=== PATIENT | female | born 1960 | race Caucasian/White ===

== ENCOUNTER 2016-07-28 23:44 | Emergency (ER) | payer OTHER ==
[~2016-07-28] VITALS: Ht 170.2 cm; Wt 86.2 kg
[~2016-07-28 23:44] MED LIST: AMBIEN 5 MG TABL5 M1 PO; ATENOLOL 100MG100 MG PO; BACTRIM DS TAB1 EACH PO; BENADRYL25 MG PO; BUDEPRION SR150 MG PO; BUPROPION HCL150 M1 PO; BUSPAR15 MG PO; BUSPIRONE HCL10 MG PO; CELEXA10 MG PO; CIPROFLOXACIN500 M1 PO; DICLOFENAC SODI75 M1 PO; DIFLUCAN150 MG PO; FLEXERIL PO; GABAPENTIN 100100 MG; HYDROCHLOROTHIA50 MG PO; HYDROCODON-ACE1 EAC5 PO; HYDROCODON-ACE1 EAC7 PO; HYDROCODONE-AP1 EAC6 PO; LAMOTRIGINE100 MG PO; LANTUS SUBQ; LIPITOR; LIPITOR40 MG PO; LISINOPRIL40 MG PO; METHOCARBAMOL500 M2 PO; MORPHINE SULFA100 MG PO; NEURONTIN 300M300 M2 PO; NEURONTIN600 MG PO; NORCO 5-325 TA1 EACH PO; NORFLEX100 MG PO; NOVOLOG100 UNIT/1; PERCOCET 5-3251 EACH PO; PERCOCET 7.5-31 EACH PO; PHENERGAN 25 MG25 MG PO; PREDNISONE 20 M20 MG PO; PRILOSEC 20 MG20 MG PO; SEROQUEL 25 MG25 M1 PO; VITAMIN D-32000 UNIT PO; VITAMIN D1000 UNI1 PO; ZANAFLEX4 M1 PO
[2016-07-29] MEDS ORDERED: VALIUM2 MG PO (00:11)
[2016-07-29] MEDS ORDERED: NORCO 5-325 TA1 EACH PO (00:11)
[2016-07-29 01:12] VITALS: BP 102/61
[2016-08-29] MEDS ORDERED: HYDROCODONE-AP1 EAC6 PO ×2 (08:56)
[2016-08-30] MEDS ORDERED: HYDROCODONE-AP1 EAC6 PO (09:47)
[2016-09-21] MEDS ORDERED: FLEXERIL PO (23:13)
[2016-09-21] MEDS ORDERED: NORCO 5-325 TA1 EACH PO (23:21)
[2016-09-30] MEDS ORDERED: FLEXERIL PO (08:56)
[2016-09-30] MEDS ORDERED: HYDROCODONE-AP1 EAC6 PO ×2 (09:31)
== END 2016-07-29 01:13 | disposition home or self-care (01) ==
LOC: ER 23:44
DX: M54.12 Radiculopathy, cervical region (principal); F17.210 Nicotine dependence, cigarettes, uncomplicated; F15.10 Other stimulant abuse, uncomplicated; Z88.0 Allergy status to penicillin; Z88.1 Allergy status to other antibiotic agents

== ENCOUNTER → 2016-07-31 | Outpatient (CLI) | payer OTHER ==
[~2016-07-31] VITALS: Ht 170.2 cm; Wt 85.7 kg
[~2016-07-31] MED LIST changes: +VALIUM2 MG PO
--- NOTE | ~2016-07-31 | HPC ---
[facility] [address] [place] [address] PAIN MANAGEMENT CONSULTATION Name: TYRELL DEL VALLE Room #: REG SAMMY Stringer.#: [id number] Admission: 07/31/16 Attend Phys: Tim Marr MD Discharge: Date of : 60 Report #: [id number] THIS REPORT FOR: //name// CC: Deborah Marr DATE OF SERVICE: 07/31/2016 Followup visit for chronic low back pain, post-laminectomy syndrome with radiculopathy and now cervicalgia with radiculopathy following into the left arm. The patient presents to the pain clinic today complaining bitterly of pain into her left arm. Pain intensity is 8/10. She describes a constant, sharp, numbness. It is exacerbated by activity. The pain radiates from her left neck and shoulder down into her left arm. She complains of some mild numbness and weakness involving the fourth and fifth finger. MEDICATIONS: Hydrocodone 5/325, Bupropion 150 mg ER daily, Lantus insulin, gabapentin 600 mg t.i.d., diphenhydramine, Citalopram 10 mg daily, lisinopril 1 mg daily, atenolol 1 mg daily, ____ and hydrochlorothiazide. ALLERGIES: TETRACYCLINE, PENICILLIN AND ERYTHROMYCIN. PHYSICAL EXAMINATION: GENERAL: Pleasant, alert and oriented. VITAL SIGNS: Blood pressure 110/68, heart rate 74 and BMI is 29.6. EXTREMITIES: Cervical range of motion is limited in extension. Rotational uthy-my-enzz movements. She has some tension signs noted in the left arm. Strength is diminished with personnel monitor on the left in comparison to the right. Biceps and triceps strength is also diminished. IMPRESSION: Cervicalgia with radiculopathy into the left upper extremity. RECOMMENDATIONS: Cervical epidural injection under fluoroscopic guidance. PROCEDURE: She was taken to the fluoroscopic suite, placed prone, skin prepped with ChloraPrep. Skin was anesthetized over C67. A 20-gauge Tuohy epidural needle was advanced first attempt in the epidural space with loss of resistance. There was no blood or CSF aspirated. A 1 mL of Omnipaque was injected with excellent spread of dye observed in the epidural space was followed by 3 mL of 0.5% lidocaine mixed with 80 mg of triamcinolone. She tolerated the procedure well and was observed for 45 [place] [address] PAIN MANAGEMENT CONSULTATION Name: TYRELL DEL VALLE Room #: REG SAMMY Diaz#: [id number] Admission: 07/31/16 Attend Phys: Tim Marr MD Discharge: Date of : 60 Report #: [id number] Followup visit is planned as needed. <ELECTRONICALLY SIGNED> By: Tim Marr MD 08/02/16 1329 [id number] [id number] Tim Marr MD /nt
[2016-07-31 13:14] VITALS: BP 110/68
== END ==
LOC: PAIN 07:41
DX: M54.2 Cervicalgia (principal); M96.1 Postlaminectomy syndrome, not elsewhere classified; I10 Essential (primary) hypertension; Z79.4 Long term (current) use of insulin; F17.210 Nicotine dependence, cigarettes, uncomplicated

== ENCOUNTER 2016-08-11 10:37 | Emergency (ER) | payer OTHER ==
[~2016-08-11] VITALS: Ht 170.2 cm; Wt 86.2 kg
[2016-08-11] MEDS ORDERED: FLEXERIL PO (11:47)
[2016-08-11] MEDS ORDERED: PREDNISONE 20 M20 MG PO (11:47)
[2016-08-11] MEDS ORDERED: HYDROCODONE-AP1 EAC6 PO (11:52)
[2016-08-11 12:16] VITALS: BP 102/64
[2016-08-29] MEDS ORDERED: HYDROCODONE-AP1 EAC6 PO ×2 (08:56)
[2016-08-30] MEDS ORDERED: HYDROCODONE-AP1 EAC6 PO (09:47)
[2016-09-21] MEDS ORDERED: FLEXERIL PO (23:13)
[2016-09-21] MEDS ORDERED: NORCO 5-325 TA1 EACH PO (23:21)
[2016-09-30] MEDS ORDERED: FLEXERIL PO (08:56)
[2016-09-30] MEDS ORDERED: HYDROCODONE-AP1 EAC6 PO ×2 (09:31)
== END 2016-08-11 12:18 | disposition home or self-care (01) ==
LOC: ER 10:37
DX: M54.12 Radiculopathy, cervical region (principal); Z88.1 Allergy status to other antibiotic agents; Z88.0 Allergy status to penicillin; Z88.8 Allergy status to other drugs, medicaments and biological substances; F17.210 Nicotine dependence, cigarettes, uncomplicated; F10.99 Alcohol use, unspecified with unspecified alcohol-induced disorder

== ENCOUNTER → 2016-10-25 | Outpatient (CLI) | payer OTHER ==
[~2016-10-25] VITALS: Ht 170.2 cm; Wt 86.8 kg
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
[2016-10-25 09:38] VITALS: BP 137/97
== END ==
LOC: PAIN 09:22
DX: M54.12 Radiculopathy, cervical region (principal)

== ENCOUNTER → 2017-01-09 | Outpatient (CLI) | payer OTHER ==
[~2017-01-09] VITALS: Ht 170.2 cm; Wt 84.4 kg
[~2017-01-09] MED LIST changes: +DOXEPIN 50MG CA50 MG PO; +IBUPROFEN 400400 M1 PO; +LIPITOR 20 MG T20 M1 PO
--- NOTE | ~2017-01-09 | HPC ---
[facility] [place] [address] PAIN MANAGEMENT CONSULTATION Name: TYRELL DEL VALLE Room #: REG SAMMY Mckeon.#: [id number] Admission: 01/09/17 Attend Phys: Tim Marr MD Discharge: Date of : 60 Report #: [id number] THIS REPORT FOR: //name// CC: Deborah Gómez Marr DATE OF SERVICE: 01/09/2017 Followup visit for lumbar radiculopathy. The patient has cervical and lumbar radiculopathy. Today, she is here because the pain is severe and is radiating into her legs. She has responded nicely to epidural injections. We have been trying using sparingly. She is on pain medication. We are also trying to control those medications. She is on hydrocodone no more than 15 mg per day. She denies any significant side effects. Pain today is described as 8/10. It is in her low back, left leg and right leg today. It is sharp and burning and tingling. Pain in the neck is present with cervical rotation. She has some weakness in both arms, left worse than right. 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 MEDICATIONS: Ibuprofen, doxepin, atorvastatin, hydrocodone, bupropion, insulin, atenolol, omeprazole, hydrochlorothiazide. PHYSICAL EXAMINATION: She is a very pleasant, easygoing 56-year-old. She moves from sitting to standing position. Her gait is antalgic. Examination of the neck first demonstrates reduced range of motion. She has weakness in the left arm. She has increasing pain that radiates into the left arm with neck extension. Deep tendon reflexes are trace. Examination of the low back reveals tenderness across the low back, limited range of motion in both flexion and extension, which reproduced both pain into the back and into the buttocks. She has positive straight leg raising bilaterally, left worse than right. IMPRESSION: 1. Lumbar radiculopathy, post-laminectomy syndrome. 2. Cervical radiculopathy with mass effect on the left C7 nerve root. Surgery may be contemplated for the neck lesion. 3. Management of high risk medication, hydrocodone. She is on a very modest dose of 15 mg and understands the importance of safeguarding medication and using it under terms of our opioid agreement. I have agreed to renew the medication for her for 1 month being up to her surgery in January for her neck. We will see her back after that in February. I have also [place] [address] PAIN MANAGEMENT CONSULTATION Name: TYRELL DEL VALLE Room #: REG [facility].#: [id number] Admission: 01/09/17 Attend Phys: Tim Marr MD Discharge: Date of : 60 Report #: [id number] lumbar epidural injection under fluoroscopic guidance. Procedure explained the risks, benefits, and she was taken to the fluoroscopic suite for treatment. PROCEDURE: The patient was taken to fluoroscopic suite, placed prone, skin prepped with ChloraPrep. Skin anesthetized to the right of her scar at L4-L5. A 20-gauge Tuohy epidural needle advanced in the epidural space with loss of resistance. No blood or CSF aspirated. 1 mL of Omnipaque excellent posterior epidural spread. It was then followed by 3 mL of 0.5% lidocaine mixed with 80 mg triamcinolone. She tolerated the procedure well. Pain was reduced by about 25% and she was taken to recovery room for observation. We will see her back after surgery on her neck in February. By: 99 19 Tim Marr MD /nt
[2017-01-09 12:51] VITALS: BP 98/64
== END | disposition home or self-care (01) ==
LOC: PAIN 06:43
DX: M54.16 Radiculopathy, lumbar region (principal); M96.1 Postlaminectomy syndrome, not elsewhere classified; M54.12 Radiculopathy, cervical region; F11.20 Opioid dependence, uncomplicated; F17.200 Nicotine dependence, unspecified, uncomplicated; Z88.0 Allergy status to penicillin; Z79.4 Long term (current) use of insulin; Z79.899 Other long term (current) drug therapy; Z88.8 Allergy status to other drugs, medicaments and biological substances

== ENCOUNTER → 2017-03-10 | Outpatient (CLI) | payer OTHER ==
[~2017-03-10] VITALS: Ht 170.2 cm; Wt 83.9 kg
--- NOTE | ~2017-03-10 | HPC ---
[facility] [address] [place] [address] PAIN MANAGEMENT CONSULTATION Name: TYRELL DEL VALLE Room #: REG SAMMY Linda.#: [id number] Admission: 03/10/17 Attend Phys: Tim Marr MD Discharge: Date of : 60 Report #: [id number] THIS REPORT FOR: //name// CC: Deborah Marr DATE OF SERVICE: 03/10/2017 DATE OF REGISTRATION: 03/10/2017. REASON FOR VISIT: Followup visit for cervicalgia and low back pain with radiculopathy. Chronic intractable pain and management of high-risk medication. SUBJECTIVE: The patient returns to the pain clinic today for renewal of her hydrocodone. She has recently had neck surgery. She is recovering. Dr. Ruby gave her some low dose Valium tablets for muscle spasm, which she has tolerated well with her low dose hydrocodone. She is now out of both medications. She reports today that surgery has gone well, but her neck is still really stiff, and she has lot of tightness and pain that is affecting her ability to sleep. She has trouble with rotational movements of her head and neck and has some kinesophobia. Pain scored, it is an 8. She describes mostly as a burning sensation in her neck overlying her scar. She has less pain in her left arm. She has also some low back pain, worse with standing and walking. PHYSICAL EXAMINATION: GENERAL: She is pleasant, appears a little tired. VITAL SIGNS: Blood pressure is 130/84, heart rate is 82, BMI is 29.0. NECK: She has 1 inch to 2 inch scar in the lower portion of her cervical spine posteriorly from posterior decompression. The scar is healing well. There is no redness, inflammation or tenderness. Rotational movements, flexion, extension, [id number]-ao-[id number] tilt of all of the neck are performed with some increase in pain. EXTREMITIES: No weakness is noted in the upper extremities, although she has fear of moving her arms and restrictions in lifting her arms and abduction. BACK: Low back is minimally tender today. IMPRESSION: 1. Chronic low back pain with radiculopathy. 2. Cervicalgia, status post decompression of the left C7 nerve root. 3. Management of high-risk medication. PLAN: [address] [address] PAIN MANAGEMENT CONSULTATION Name: IVONTYRELL ADAME Room #: REG CL MRosario.#: [id number] Admission: 03/10/17 Attend Phys: Tim Marr MD Discharge: Date of : 60 Report #: [id number] 1. Renew hydrocodone 5/325, #60 tablets per month. This is a morphine milligram equivalency of 10 MME per day, a very low dose. She uses her medicine carefully and safeguards it. She has shown no misuse, abuse or opioid use disorder signs. She understands the importance of safeguarding in relationship to the opioid crisis in the [place]. 2. I have given her an additional prescription for Valium to be taken no more than once or twice a day. This is 2 mg. Precautions were given regarding the addictive effects of opioids and benzodiazepines, which have been implicated in respiratory depression. She has been on it long enough now that I think she has had a trial and does help quite a bit with the cervical spasm that she is experiencing. Hopefully, we will be able to get her off that by next visit. Prescriptions were written for release today, 4 weeks and 8 weeks. By: 1542 Tim Marr MD /nt
[2017-03-10 12:29] VITALS: BP 130/84
== END | disposition home or self-care (01) ==
LOC: PAIN 07:19
DX: Z76.0 Encounter for issue of repeat prescription (principal); M54.2 Cervicalgia; M54.16 Radiculopathy, lumbar region; G89.29 Other chronic pain; Z79.891 Long term (current) use of opiate analgesic; Z98.890 Other specified postprocedural states; F17.210 Nicotine dependence, cigarettes, uncomplicated; Z79.899 Other long term (current) drug therapy; Z88.8 Allergy status to other drugs, medicaments and biological substances; Z88.0 Allergy status to penicillin; Z79.4 Long term (current) use of insulin

== ENCOUNTER → 2017-03-17 | Outpatient (CLI) | payer OTHER | LOC: RAD 08:52 | DX: R92.0 Mammographic microcalcification found on diagnostic imaging of breast (principal) ==

== ENCOUNTER → 2017-03-19 | Outpatient (CLI) | payer OTHER ==
--- NOTE | ~2017-03-19 | S ---
[facility] [place] [address] SURGICAL PATH RPT PROCEDURE Name: MELISSA GARCIA Room #: REG [facility].#: [id number] Admission: 03/19/17 Date of : 60 Discharge: Report #: [id number] Path Case #: [id number] PATHOLOGY REPORT COLLECTION DATE: 03/19/2017 RECEIVED DATE: 03/19/2017 SUBMITTING PHYS: PAM Nelson OTHER PHYS: SPECIMEN(S) RECEIVED: A.Left breast calcifications, central superior * * * * * * * * * * * * FINAL DIAGNOSIS: Breast, left breast central superior, stereotactic needle core biopsy: - INVASIVE WELL DIFFERENTIATED DUCTAL CARCINOMA, DANIEL GRADE 1 MEASURING 8 MM IN GREATEST DIMENSION IN A SINGLE CORE IN CONTIGUOUS LENGTH. - DUCTAL CARCINOMA IN SITU, INTERMEDIATE NUCLEAR GRADE AND CRIBRIFORM TYPE ASSOCIATED WITH COARSE CALCIFICATIONS. 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 Hazel Little Findings are telephoned to Dr. Ms. Henao in our [facility] at 1:05 p.m. on 03/20/17. (IUV:mgr; 03/20/2017) PATHOLOGIST: Ute Gray M.D. REPORT ELECTRONICALLY SIGNED BY: Ute Gray M.D. DATE/TIME: 03/20/2017 14:56 * * * * * * * * * * * * GROSS PATHOLOGY: Received in formalin labeled "Melissa Garcia," and additionally labeled [address] [address] SURGICAL PATH RPT PROCEDURE Name: MELISSA GARCIA Room #: REG CLI [facility].#: [id number] Admission: 03/19/17 Date of : 60 Discharge: Report #: [id number] Path Case #: [id number] on requisition as, "left breast, central superior," are multiple needle cores of yellow-mcguire fibrofatty tissue measuring 3.0 x 2.4 x 0.5 cm in aggregate dimensions. The tissue is submitted in its entirety in cassettes A1 and A2. The cold ischemic time is 4 minutes. The total formalin fixation time is 10 hours and 28 minutes. (DAC; 03/19/2017) CLINICAL HISTORY: Left breast calcifications INITIAL CPT CODE(S): A; 98227, 61410(4) Professional services performed by [facility] at [address], [place] [address] Technical services performed by [facility] at [address] [place] [address], [facility] [address] [address]. [facility] [address] [place], [place] [address] PHONE: [phone] DIRECTOR: Mario Morris M.D. * * * END OF REPORT * * *
== END | disposition home or self-care (01) ==
LOC: RADSTEREO 00:21
DX: C50.912 Malignant neoplasm of unspecified site of left female breast (principal); Z98.890 Other specified postprocedural states; Z88.0 Allergy status to penicillin; Z88.8 Allergy status to other drugs, medicaments and biological substances; Z79.899 Other long term (current) drug therapy

== ENCOUNTER → 2017-04-07 | Outpatient (CLI) | payer OTHER | LOC: LABMALL 08:33 → RAD 08:51 | PROVIDERS: Surgery | DX: C50.919 Malignant neoplasm of unspecified site of unspecified female breast (principal); R06.02 Shortness of breath ==

== ENCOUNTER → 2017-04-21 | Outpatient (CLI) | payer OTHER ==
--- NOTE | ~2017-04-21 | S ---
[facility] [place] [address] SURGICAL PATH RPT PROCEDURE Name: MELISSA DEL VALLE Room #: REG SAMMY Mckeon.#: [id number] Admission: 04/21/17 Date of : 60 Discharge: Report #: [id number] Path Case #: [id number] PATHOLOGY REPORT COLLECTION DATE: 04/21/2017 RECEIVED DATE: 04/22/2017 SUBMITTING PHYS: Dr. Alberto Chavez OTHER PHYS: Dr. Antoni Moses, PAM Gonzáles Dr. SPECIMEN(S) RECEIVED: A.Left breast-central post * * * * * * * * * * * * FINAL DIAGNOSIS: "Left breast central post", needle biopsy: - Benign breast with fibrocystic changes including dense stromal fibrosis, cyst formation, fibroadenomatoid change, adenosis and columnar cell hyperplasia with coarse microcalcifications present; no cytologic atypia or malignancy seen. COMMENT: A properly controlled immunohistochemical stain is performed. CK5/6 (block A3): focal mosaic pattern The case is co-reviewed with Dr. Josh Thorne. Clinical and radiographic correlation is recommended. The case was discussed with Dr. Lucila Roque on 04/23/17 in the morning and again on 04/24/17 at approximately 6:00 PM. (CLW:marilyn; 04/23/2017) PATHOLOGIST: Hazel Little M.D. REPORT ELECTRONICALLY SIGNED BY: Hazel Little M.D. DATE/TIME: 04/24/2017 22:26 * * * * * * * * * * * * GROSS PATHOLOGY: Received in formalin labeled "Melissa Jose," and additionally labeled on the requisition as "central post," are multiple needle cores of yellow-mcguire fibrofatty tissue measuring 3.6 x 1.8 x 0.7 cm in aggregate dimensions. Also received is a plastic cassette containing multiple cores of yellow-mcguire fibrofatty tissue measuring 1.9 x 2.7 x 0.9 cm in aggregate dimensions. The tissue in the cassette is transferred to cassette A3, and the remaining tissue is submitted in its entirety in cassette A1 and A2. The cold ischemic time is 10 minutes. The total formalin fixation time is 30 hours and 50 minutes. [place] [address] [place] [address] SURGICAL PATH RPT PROCEDURE Name: MELISSA DEL VALLE Room #: REG CLI Linda.#: [id number] Admission: 04/21/17 Date of : 60 Discharge: Report #: [id number] Path Case #: [id number] (TSD; 04/22/2017) CLINICAL HISTORY: Calcs INITIAL CPT CODE(S): A; 71712, 47959 Professional services performed by [facility] at [facility] [address] [place] [address] Technical services performed by [facility] at [address] [place] [address], [address], [place] [address]. [facility] [address] [place], [place] [id number] PHONE: [phone] DIRECTOR: Mario Morris M.D. * * * END OF REPORT * * *
== END | disposition home or self-care (01) ==
LOC: RAD 09:52
DX: D24.2 Benign neoplasm of left breast (principal); N63 Unspecified lump in breast

== ENCOUNTER 2017-05-07 05:12 | Day surgery (SDC) | payer OTHER ==
[~2017-05-07] VITALS: Ht 172.7 cm; Wt 83.0 kg
--- NOTE | ~2017-05-07 | EKG ---
[address] [address] ELECTROCARDIOGRAM REPORT Name: TYRELL DEL VALLE [id number] Admission: 05/07/17 Attend Phys: Antoni Bradford Discharge: 05/07/17 Date of : 60 Report #: [id number] THIS REPORT FOR: //name// [facility] Test Date: 2017-05-07 Test Time: 06:55:49 Pat Name: TYRELL DEL VALLE Department: Room: 150 2 Gender: F Supervisor Lace Tearing: VENKAT : 1960 Requested By: Romeo Jacobs Order Number: [id number] MD: Todd Shelley Measurements Intervals [place] Rate: 60 P: 70 [place]: 192 QRS: -29 QRSD: 118 T: 24 QT: 443 QTc: 443 Interpretive Statements Sinus rhythm Probable left ventricular hypertrophy Compared to ECG 08/11/2011 11:34:44 Incomplete right bundle-branch block no longer present Electronically Signed On 05-07-2017 20:17:08 CDT by Todd Shelley [email or web address] <ELECTRONICALLY SIGNED> By: Todd Shelley MD 05/07/172016 4 0655 Todd Shelley MD /EPI
--- NOTE | ~2017-05-07 | S ---
[facility] [place] [address] SURGICAL PATH RPT PROCEDURE Name: MELISSA GARCIA Room #: DEP [facility]..#: [id number] Admission: 05/07/17 Date of : 60 Discharge: 05/07/17 Report #: [id number] Path Case #: [id number] PATHOLOGY REPORT COLLECTION DATE: 05/07/2017 RECEIVED DATE: 05/07/2017 SUBMITTING PHYS: Dr. Antoni Moses, OTHER PHYS: PAM Nelson Dr. * AMENDED (CORRECTED) REPORT * SPECIMEN(S) RECEIVED: A.Left axillary sentinel lymph node #1 B.Left axillary sentinel lymph node #2 C.Left breast partial mastectomy long stitch lateral, short stitch superior, double stitch deep * * * * * * * * * * * * FINAL DIAGNOSIS: A. Left axilla, sentinel lymph node #1, excision: - One lymph node, negative for carcinoma (0/1). - Confirmed by keratin immunostain (Block A1; appropriately reactive control). B. Left axilla, sentinel lymph node #2, excision: - ONE LYMPH NODE WITH ISOLATED TUMOR CELLS. - Isolated tumor cells not present on keratin immunostain (Block B1; appropriately reactive control), see comment. C. Breast, left, partial mastectomy: - INVASIVE DUCTAL CARCINOMA, DANIEL GRADE 1. - DUCTAL CARCINOMA IN SITU (DCIS), INTERMEDIATE NUCLEAR GRADE, CRIBRIFORM, PAPILLARY AND MICROPAPILLARY TYPES. - DCIS INVOLVES ANTERIOR MARGIN (ALSO MEASURES 1 MM TO POSTERIOR, AND 2 MM TO MEDIAL). - Fibrocystic change including stromal fibrosis, apocrine metaplasia, usual ductal hyperplasia, and adenosis. - Biopsy site changes. - See comment. SYNOPTIC CANCER STAGING REPORT SPECIMEN Procedure: Other: Partial mastectomy Lymph Node Sampling: [place] lymph node(s) Specimen Laterality: Left TUMOR Primary Tumor Site: Invasive Carcinoma: Not specified [address] [address] SURGICAL PATH RPT PROCEDURE Name: MELISSA GARCIA Room #: DEP [facility]..#: [id number] Admission: 05/07/17 Date of : 60 Discharge: 05/07/17 Report #: [id number] Path Case #: [id number] Presence of Invasive Carcinoma: Histologic Type: Invasive mammary carcinoma of no special type (ductal, not otherwise specified) Histologic Grade (Daniel Histologic Score): Glandular (Acinar) / Tubular Differentiation: Score 1 (> 75% of tumor area forming glandular / tubular structures) Nuclear Pleomorphism: Score 1 (Nuclei small with little increase in size in comparison with normal breast epithelial cells, regular outlines, uniform nuclear chromatin, little variation in size) Mitotic Rate: Score 1 (<=3 mitoses per mm2) Overall Grade: Grade 1 (scores of 3, 4 or 5) Ductal Carcinoma In Situ (DCIS): DCIS is present Positive for EIC Number of Blocks with DCIS: 8 Number of Blocks Examined: 23 Architectural Patterns: Cribriform Micropapillary Papillary Nuclear Grade (see Table 2 in CAP Protocol): Grade II (intermediate) Necrosis: Not identified Lobular Carcinoma In Situ (LCIS): Not identified Tumor Size: Size of Largest Invasive Carcinoma: Greatest dimension of largest focus of invasion > 1 mm Greatest Dimension (mm): 11 Accessory Tumor Findings Lymph-Vascular Invasion: Cannot be determined: Indeterminate Dermal Lymph-Vascular Invasion: No skin present Microcalcifications: Present in DCIS Treatment Effect: Response to Presurgical (Neoadjuvant) Therapy: No known presurgical therapy MARGINS Invasive Carcinoma: Margins uninvolved by invasive carcinoma Distance from Closest Margin: Distance (specify in mm): 2 Closest Uninvolved Margin: Superior Anterior: 4 Posterior: 3.5 Superior: 2 Ductal Carcinoma In Situ (DCIS): Margin(s) positive for DCIS Specify Margin(s): Anterior Minimal / moderate LYMPH NODES Regional Lymph Nodes: [place] lymph node biopsy [address] [address] SURGICAL PATH RPT PROCEDURE Name: MELISSA GARCIA Room #: DEP [facility] [place] M.R.#: [id number] Admission: 05/07/17 Date of : 60 Discharge: 05/07/17 Report #: [id number] Path Case #: [id number] performed Number of [place] Nodes Examined: Specify number: 2 Method of Evaluation of [place] Lymph Node(s): H-E, multiple levels Immunohistochemistry Number of Lymph Node(s) Examined (sentinel and nonsentinel): Specify number: 2 Lymph Node Involvement: Number of Lymph Nodes with Macrometastases (> 2 mm): Specify number: 0 Number of Lymph Nodes with Micrometastases (> 0.2 mm to 2 mm and / or > 200 cells): Specify number: 0 Number of Lymph Nodes with Isolated Tumor Cells (<= 0.2 mm and <= 200 cells): Specify number: 1 Size of Largest Tumor Deposit: Specify (mm): 0.1 Extranodal Extension: Not identified STAGE (PTNM) Primary Tumor (Invasive Carcinoma) (pT): pT1c: Tumor > 10 mm but <= 20 mm in greatest dimension Modifier: (sn): Only sentinel node(s) evaluated. If 6 or more nodes (sentinel or nonsentinel) are removed, this modifier should not be used. Category (pN): pN0 (i+): Malignant cells in regional lymph node(s) no greater than 0.2 mm and no more than 200 cells (detected by H-E or IHC including ITC) Part B Although tumor cells are not present on the immunostain, definitive isolated tumor cells are present on the H-E stained slide. This case is discussed with Dr. Antoni Moses on 05/12/2017 at 12:29 PM. This case is co-reviewed by Dr. Ute Gray. Please note, the report was originally signed out with the tumor stage as pT1a "Tumor >1 mm but =5 mm in greatest dimension". This is an error as the invasive tumor component is correctly measured in the synoptic as 11 mm. This puts the tumor at stage pT1c "Tumor >10 mm but =20 mm in greatest dimension". This is the correct tumor stage and has been corrected in the synoptic in the amended report. PATHOLOGIST: Naldo Lee M.D. REPORT ELECTRONICALLY SIGNED BY: Naldo Lee M.D. DATE/TIME: 05/13/2017 12:50 * * * * * * * * * * * * GROSS PATHOLOGY: [facility] [address] [place] [address] SURGICAL PATH RPT PROCEDURE Name: MELISSA GARCIA Room #: DEP [facility]#: [id number] Admission: 05/07/17 Date of : 60 Discharge: 05/07/17 Report #: [id number] Path Case #: [id number] A. The specimen is received in formalin, labeled "Melissa Garcia and left axillary sentinel lymph node #1" and consists of a 1.1 x 0.7 x 0.6 cm lymph node candidate that is bisected. There is blue dye identified. Totally submitted as A1. B. The specimen is received in formalin, labeled "Melissa Garcia and left axillary sentinel node #2" and consists of a 1.4 x 1.0 x 0.6 cm lymph node candidate with attached tags of unremarkable adipose tissue. There is vague blue dye on cut surface. Totally submitted as B1. C. The specimen is received in formalin, labeled "Melissa Garcia and left breast partial mastectomy long stitch lateral, short stitch superior, and double stitch deep" and consists of a 23 g oriented lumpectomy specimen that measures 5.4 cm L-M, 4.1 cm S-I, and 3.2 cm A-P. A localizing wire is floating within the container. The surgical margins are inked as follows: Superior blue, inferior green, lateral yellow, medial red, anterior orange and posterior black. The specimen is serially sectioned from lateral to medial into 10 levels. There is unavoidable fragmentation at the superior aspect in levels 8-10. Beginning in level and extending into level VIII are gross biopsy changes that measure approximately 0.9 x 0.8 by a 0.8 cm. There is palpable induration, hemorrhage, and vague fat necrosis. The following measurements of biopsy site to margins are obtained: Superior 0.3 cm, inferior 1.4 cm, anterior 0.6 cm, posterior 0.7 cm, medial 1.7 cm, and lateral to cm or greater. Elsewhere, the levels show dense white fibrous stroma accounting for approximately 70% of specimen. No additional masses or lesions are identified. The metallic marker is not identified. The specimen is totally submitted C1-C23. The cold ischemic time is unknown. The form of fixation time is approximately 31 hours. C1-C2 level I, lateral, perpendicular C3 level II C4-C5 level III C6-C7 level IV C8-C9 level C10-C12 level C13-C15 level VII C16-C18 level VIII C19-C21 level IX C22-C23 level X, medial, perpendicular (JIGNESH; 05/08/2017) CLINICAL HISTORY: Left breast cancer INITIAL CPT CODE(S): A; 85963, 55163 B; [address]37, [address] [address] SURGICAL PATH RPT PROCEDURE Name: MELISSA GARCIA Room #: DEP [facility] [place] Emily#: [id number] Admission: 05/07/17 Date of : 60 Discharge: 05/07/17 Report #: [id number] Path Case #: [id number] C; [id number] Professional services performed by [facility] at [facility] [address] [place] [address] Technical services performed by [facility] at [address] [place] [address], [facility] [address] [address]. [facility] [place] [address] PHONE: [phone] DIRECTOR: Mario Morris M.D. * * * END OF REPORT * * *
[~2017-05-07 05:12] MED LIST changes: -NOVOLOG100 UNIT/1; +NOVOLOG100 UNIT/1 SUBQ
[2017-05-07 07:15] VITALS: BP 103/68
[2017-05-07 07:19] LABS: CALCIUM 9.5 mg/dL (8.5-10.1); CREATININE 0.9 mg/dL (0.6-1.0); POTASSIUM 3.2 mmol/L (3.5-5.1)
[2017-05-07] MEDS ORDERED: ONDANSETRON HCL4 M2 PO (13:09)
[2017-05-07] MEDS ORDERED: HYDROCODONE-AP1 EAC6 PO (13:09)
[2017-05-07] MEDS ORDERED: MIRALAX17 GM PO (13:09)
[2017-05-07 13:35] VITALS: BP 103/68
[2017-05-19] MEDS ORDERED: HYDROCODON-ACE1 EAC5 PO (15:46)
== END 2017-05-07 14:00 | disposition home or self-care (01) ==
LOC: NUC 05:12 → TBA 05:12 → OR 08:16 → NUC 11:33 → EDSTATUS 11:33 → NUC 11:41
PROVIDERS: Anesthesiology
DX: D05.12 Intraductal carcinoma in situ of left breast (principal); M54.12 Radiculopathy, cervical region; Z88.0 Allergy status to penicillin; Z88.8 Allergy status to other drugs, medicaments and biological substances; Z79.4 Long term (current) use of insulin; F41.9 Anxiety disorder, unspecified; F32.9 Major depressive disorder, single episode, unspecified; I10 Essential (primary) hypertension; E78.5 Hyperlipidemia, unspecified; K21.9 Gastro-esophageal reflux disease without esophagitis; Z90.710 Acquired absence of both cervix and uterus; E11.9 Type 2 diabetes mellitus without complications
CPT/HCPCS: 50010; 50101; 50386; 50403; 52190; 56524; 56526; 56668; 62110; 62900; 70005

== ENCOUNTER → 2017-05-19 | Outpatient (CLI) | payer OTHER ==
[~2017-05-19] VITALS: Ht 170.2 cm; Wt 85.3 kg
[~2017-05-19] MED LIST changes: +MIRALAX17 GM PO; +ONDANSETRON HCL4 M2 PO
--- NOTE | ~2017-05-19 | HPC ---
[facility] [place] [address] PAIN MANAGEMENT CONSULTATION Name: TYRELL DEL VALLE Room #: REG SAMMY Emily#: [id number] Admission: 05/19/17 Attend Phys: Tim Marr MD Discharge: Date of : 60 Report #: [id number] THIS REPORT FOR: //name// CC: Deborah Marr DATE OF SERVICE: 05/19/2017 Followup visit for low back pain with radiculopathy, postlaminectomy. The patient returns to clinic today for an epidural injection. She always gets relief. Duration of relief varies from anywhere from 3-6 months. Her last lumbar epidural injection was performed about 5-1/2 months ago. Pain is now returning, it radiates into both legs, right worse than left. Since her last visit she has been diagnosed with breast cancer. She had a lumpectomy. She has radiation planned and will begin on hormone therapy. Dr. Moses performed her surgery and she follows with Deborah Magaña at Dr. Taylor's office. All of her treatment will be performed under their direction. Today, her pain is a 6/10, worse with walking, sitting and standing. She describes it as burning, stabbing, shooting pain bilaterally in lower legs. MEDICATIONS: Include MiraLax, ondansetron, hydrocodone, doxepin, atorvastatin, bupropion, insulin, diphenhydramine, citalopram, lisinopril, atenolol, omeprazole, hydrochlorothiazide. PHYSICAL EXAMINATION: She is a pleasant female, 57 years old. Blood pressure 104/69, heart rate 78, respirations 16, BMI 29.4. She is able to move from sitting to standing position, but complains of pain with weightbearing. She has a slow gait. Straight leg raising reproduces positive pain into the right lateral anterior thigh on the right and into the posterior lateral thigh on the left. Sensation is diminished bilaterally in lower extremities. Generalized weakness is present. IMPRESSION: 1. Chronic low back pain with radiculopathy, postlaminectomy syndrome. 2. Recent diagnosis of breast cancer status post lumpectomy. 3. Hyperlipidemia. 4. Gastroesophageal reflux disease. 5. History of cervicalgia with radiculopathy status post anterior cervical diskectomy and fusion. 6. Management of high risk medication. PLAN: 1. Renew hydrocodone, increased to 10 mg q.8 [place] [address] PAIN MANAGEMENT CONSULTATION Name: TYRELL DEL VALLE Room #: REG CLI Emily#: [id number] Admission: 05/19/17 Attend Phys: Tim Marr MD Discharge: Date of : 60 Report #: [id number] 2. Epidural steroid injection under fluoroscopic guidance. PROCEDURE: Lumbar epidural steroid injection. She was taken to fluoroscopic suite, placed prone, skin prepped with ChloraPrep. Skin anesthetized over the L4-L5 interspace to the right of midline. A 20-gauge Tuohy epidural needle advanced in the epidural space with loss of resistance. No blood or CSF aspirated. 1 mL of Omnipaque injected, good spread of dye observed in the epidural space, followed by 3 mL of 0.5% lidocaine mixed with 80 mg of triamcinolone. She tolerated the procedure well and was observed in recovery room for 45 minutes without complications and discharged. Followup visit as needed. By: 1544 2038 Tim Marr MD /nt
[2017-05-19 14:42] VITALS: BP 104/69
== END | disposition home or self-care (01) ==
LOC: PAIN 07:04
DX: M54.16 Radiculopathy, lumbar region (principal); M96.1 Postlaminectomy syndrome, not elsewhere classified; E78.5 Hyperlipidemia, unspecified; K21.9 Gastro-esophageal reflux disease without esophagitis; Z98.890 Other specified postprocedural states; Z79.899 Other long term (current) drug therapy; Z85.3 Personal history of malignant neoplasm of breast; Z87.891 Personal history of nicotine dependence

== ENCOUNTER → 2017-06-17 | Outpatient (CLI) | payer OTHER | LOC: RAD 07:34 | DX: M19.012 Primary osteoarthritis, left shoulder (principal); W19.XXXA Unspecified fall, initial encounter; Y93.89 Activity, other specified; Y92.89 Other specified places as the place of occurrence of the external cause; Y99.8 Other external cause status ==

== ENCOUNTER → 2017-07-31 | Outpatient (CLI) | payer OTHER ==
[~2017-07-31] VITALS: Ht 170.2 cm; Wt 81.5 kg
[~2017-07-31] MED LIST changes: +BUTALB-APAP-CA1 EACH PO; +CLONAZEPAM 0.50.5 M1 PO; +LISINOPRIL20 MG PO; +OXYCODONE-ACET1 EAC2 PO; +OXYCODONE-APAP1 EAC6 PO; +POTASSIUM20 PO; +VITAMIN D-32000 UNI1 PO; +XTAMPZA ER13.5 MG PO; +ZOFRAN ODT4 MG PO
--- NOTE | ~2017-07-31 | HPC ---
[facility] [place] [address] PAIN MANAGEMENT CONSULTATION Name: TYRELL DEL VALLE Room #: REG SAMMY Linda.#: [id number] Admission: 07/31/17 Attend Phys: Tim Marr MD Discharge: Date of : 60 Report #: [id number] THIS REPORT FOR: //name// CC: Nate Marr DATE OF SERVICE: 07/31/2017 Followup visit for chronic intractable back pain with radiculopathy and cervicalgia, also with radicular like symptoms. The patient returns to the pain clinic today. She has been undergoing radiation therapy for cancer of the breast. She is doing okay except she has pain in her shoulders, neck, arm and some numbness and tingling into her hands. It is worse by the position that she must hold her hands during therapy. She is receiving medications in our clinic under terms of written opioid agreement. She has signed an opioid agreement. Today, she reports that her pain intensity has increased some. She is a 7/10. Pain is only marginally managed by her medicines. She describes it as a burning, stabbing, shooting, tingling. She had some questions about a possible injection. She continues to have low back pain as well and is worried a bit about pain in both locations. MEDICATIONS: Reviewed and reconciled. ALLERGIES: Reviewed as well. No changes. PAST MEDICAL HISTORY: Significant for lumbar diskectomy. She has had an anterior cervical diskectomy and fusion as well as a posterior and cervical fusion and laminectomy. She suffers from depression and hypertension. She is an insulin-dependent diabetic. She quit smoking in April after much counseling and is doing well. She had a left breast cancer treated by lumpectomy and radiation therapy. She suffers from sleep apnea. PHYSICAL EXAMINATION: GENERAL: Her affect is mildly depressed. VITAL SIGNS: Blood pressure is 102/61 and heart rate 74. BMI is 28.1. EXTREMITIES: She has tenderness in her neck, tenderness radiating into her scapula and deltoids. She has weakness with biceps and triceps. Some diminished reflexes are noted in the upper extremities bilaterally. IMPRESSION: 1. Lumbar pain with radiculopathy. 2. Cervical pain, status post cervical laminectomy and diskectomy. [facility] [address] [place] [address] PAIN MANAGEMENT CONSULTATION Name: IVONTYRELL ADAME [id number] Admission: 07/31/17 Attend Phys: Tim Marr MD Discharge: Date of : 60 Report #: [id number] 3. Breast cancer. 4. Management of high risk medication. I do not think we can do a cervical epidural injection to her scar in her back. I recommended that we change her medication from hydrocodone to oxycodone with rotation. She will be on oxycodone 10/325, #3 tablets per day, totaling 45 morphine milligram equivalents. I reviewed the importance of safeguarding all medications and all terms of our opioid agreement. She understands the CDC guidelines. Followup visit is planned in three months. <ELECTRONICALLY SIGNED> By: Tim Marr MD 09/24/17 1640 1518 0606 Tim Marr MD /nt
[2017-07-31 09:07] VITALS: BP 102/61
== END ==
LOC: PAIN 07:06
DX: M54.16 Radiculopathy, lumbar region (principal); C50.919 Malignant neoplasm of unspecified site of unspecified female breast; Z98.890 Other specified postprocedural states; Z79.899 Other long term (current) drug therapy

== ENCOUNTER → 2017-09-08 | Outpatient (CLI) | payer OTHER ==
[~2017-09-08] VITALS: Ht 170.2 cm; Wt 82.3 kg
--- NOTE | ~2017-09-08 | HPC ---
[facility] [place] [address] PAIN MANAGEMENT CONSULTATION Name: TYRELL DEL VALLE Room #: REG SAMMY Linda.#: [id number] Admission: 09/08/17 Attend Phys: Tim Marr MD Discharge: Date of : 60 Report #: [id number] THIS REPORT FOR: //name// CC: Nate Marr DATE OF SERVICE: 09/08/2017 Followup visit for lumbar radiculopathy. The patient returns to the pain clinic today with worsening of depression and ongoing pain in her low back with radiculopathy. She is here today for an epidural injection. These have provided substantial improvement and relief in her pain last performed in 04/2017. She also has cervicalgia with radiculopathy and has had an anterior cervical diskectomy and fusion. She has been diagnosed with breast cancer and is status post lumpectomy. She seems more depressed today than I have seen her in some time. She recently saw Gavino Friedman MD. Reported that there was no clinical evidence of disease on 08/08 following her scans. She has, however, continued to recover from radiation effects, which are unpleasant. He acknowledged her depression as I did today, she does not have suicidal ideations. She has been offered psychiatric and psychological counseling and will remain on medication. Some of her depression is related to her ongoing physical pain. MEDICATIONS: Reviewed and reconciled. I provided her with oxycodone 10/325 3 tablets daily under terms of written agreement. I have agreed to release those medications early today. She had taken a bit more medication around the time of her diagnosis of cancer, but her last prescription from our clinic prior to today was on 07/31/2017. PHYSICAL EXAMINATION: The patient is depressed. Her blood pressure is 117/69, heart rate 69 and respirations 16. She is able to move from sitting to standing, but walks with antalgic features. She has pain across her low back, pain with forward flexion and extension and straight leg raising is positive for pain into the right lateral and posterior thigh. She has generalized weakness noted in the right leg. IMPRESSION: 1. Low back pain with radiculopathy, post-laminectomy syndrome. 2. Recent diagnosis of breast cancer, status post lumpectomy, but her most recent followup with her oncologist is good with no evidence of recurrent disease. 3. Gastroesophageal reflux disease. 4. Depression. 5. History of cervicalgia and radiculopathy, post anterior cervical diskectomy [address] [address] PAIN MANAGEMENT CONSULTATION Name: TYRELL DEL VALLE Room #: REG CLAkosua Diaz#: [id number] Admission: 09/08/17 Attend Phys: Tim Marr MD Discharge: Date of : 60 Report #: [id number] and fusion. PLAN: Lumbar epidural steroid injection under fluoroscopic guidance. PROCEDURE: She was taken to the fluoroscopic suite for the procedure, placed prone, skin prepped with ChloraPrep. Skin anesthetized over the L4-L5 interspace. A 20-gauge Tuohy epidural needle was advanced in the epidural space with loss of resistance technique. There was no blood or CSF aspirated. 1 mL of Omnipaque was injected. Good spread of dye observed into the epidural space followed by 3 mL of 0.5% lidocaine mixed with 80 mg of triamcinolone. She tolerated the procedure well and was observed for 45 minutes and discharged with the recovery room score diminished from on admission. Prior to discharge, I reviewed her antidepressant medications which are bupropion 150 mg daily and citalopram 10 mg daily. She is also taking doxepin at bedtime. We cannot really increase those. I have talked to her about the concerns of sedative medications such as clonazepam and oxycodone taken together. She should use the lowest effective dose. Followup visit planned in 1-3 months. <ELECTRONICALLY SIGNED> By: Tim Marr MD 09/24/17 1640 1558 0539 Tim Marr MD /nt
[2017-09-08 13:34] VITALS: BP 113/71
== END ==
LOC: PAIN 07:40
DX: M54.16 Radiculopathy, lumbar region (principal); F32.9 Major depressive disorder, single episode, unspecified; Z98.890 Other specified postprocedural states; M96.1 Postlaminectomy syndrome, not elsewhere classified; Z85.3 Personal history of malignant neoplasm of breast; K21.9 Gastro-esophageal reflux disease without esophagitis; M54.12 Radiculopathy, cervical region

== ENCOUNTER → 2017-10-13 | Outpatient (CLI) | payer OTHER ==
[~2017-10-13] VITALS: Ht 170.2 cm; Wt 79.8 kg
--- NOTE | ~2017-10-13 | HPC ---
[facility] [place] [address] PAIN MANAGEMENT CONSULTATION Name: IVONTYRELL ADAME Room #: REG SAMMY Emily#: [id number] Admission: 10/13/17 Attend Phys: Tim Marr MD Discharge: Date of : 60 Report #: [id number] THIS REPORT FOR: //name// CC: Nate Marr DATE OF SERVICE: 10/13/2017 Followup visit for chronic low back pain with radiculopathy, post-laminectomy syndrome. The patient reports to the pain clinic today. I was worried about her last visit because she was seen so depressed. She is better today; part of that reason, she is leaving for [place] for a vacation! She continues on her antidepressants. Providing better pain relief with the epidural injection on 09/08/2017 seems to have made a big difference. She would like another injection today before her vacation and I am willing to do so, given her good response to her last injection. She is on an opioid agreement, on a current daily dose of oxycodone 10/325 three tablets daily. This equates to a morphine milligram equivalence of 45. She uses it carefully. She understands her responsibilities. She has a written agreement, which we have reviewed today. We have done buccal drug testing within the last year. She provided me today with followup from her left invasive ductal carcinoma. She follows with Dr. Serrano with the radiation Oncology Department. There is a feeling that she has some ongoing neuropathic pain, I would agree with that. This is the time, worsens the pain into her legs. MEDICATIONS: Reviewed and reconciled as described above. PHYSICAL EXAMINATION: Her affect is brighter today. Her blood pressure is 107/60, heart rate is 76. She moves from sitting to standing position, ambulates with only mild antalgic feature. She has positive straight leg raising discomfort bilaterally. Small scar in her back from previous surgery. Pain is worse in the right lateral and posterior thigh. Generalized weakness noted throughout the lower extremities. IMPRESSION: 1. Low back pain with radiculopathy, post-laminectomy syndrome. 2. Breast cancer, status post treatment. 3. Gastroesophageal reflux disease. 4. Depression. 5. Management of high risk medications under terms of written opioid agreement. [address] [address] PAIN MANAGEMENT CONSULTATION Name: TYRELL DEL VALLE Room #: REG SAMMY Diaz#: [id number] Admission: 10/13/17 Attend Phys: Tim Marr MD Discharge: Date of : 60 Report #: [id number] PLAN: Epidural steroid injection under fluoroscopic guidance. She was taken to fluoroscopic suite, placed prone, skin prepped with ChloraPrep. Skin was anesthetized over L4-L5. A 20-gauge Tuohy epidural needle was advanced at first attempt in the epidural space with loss of resistance. There was no blood or CSF aspirated. 1 mL of Omnipaque injected. Good spread of dye observed followed by 3 mL of 0.5% lidocaine mixed with 80 mg of triamcinolone. She tolerated the procedure well. She was observed for 45 minutes and then discharged. Her followup visit planned in the pain clinic in 3 months. I provided her with 45 MME of oxycodone or oxycodone 10/325 one tablet 3 times daily for severe back and neck pain. <ELECTRONICALLY SIGNED> By: Tim Marr MD 11/03/17 1408 1615 1836 Tim Marr MD /nt
[2017-10-13 10:09] VITALS: BP 104/77
== END | disposition home or self-care (01) ==
LOC: PAIN 07:22
DX: M54.16 Radiculopathy, lumbar region (principal); M96.1 Postlaminectomy syndrome, not elsewhere classified; K21.9 Gastro-esophageal reflux disease without esophagitis; F32.89 Other specified depressive episodes; Z79.891 Long term (current) use of opiate analgesic; Z87.891 Personal history of nicotine dependence; Z88.0 Allergy status to penicillin; Z88.8 Allergy status to other drugs, medicaments and biological substances; Z79.899 Other long term (current) drug therapy; Z79.4 Long term (current) use of insulin

== ENCOUNTER → 2018-01-02 | Outpatient (CLI) | payer OTHER ==
[~2018-01-02] MED LIST changes: -BUTALB-APAP-CA1 EACH PO; -POTASSIUM20 PO; -XTAMPZA ER13.5 MG PO; -ZOFRAN ODT4 MG PO
== END ==
LOC: RAD 09:50
DX: M17.0 Bilateral primary osteoarthritis of knee (principal)

== ENCOUNTER → 2018-05-25 | Outpatient (CLI) | payer OTHER ==
[~2018-05-25] VITALS: Ht 170.2 cm; Wt 79.0 kg
[~2018-05-25] MED LIST changes: +BUTALB-APAP-CA1 EACH PO; +POTASSIUM20 PO; +XTAMPZA ER13.5 MG PO; +ZOFRAN ODT4 MG PO
--- NOTE | ~2018-05-25 | HPC ---
[facility] [place] [address] PAIN MANAGEMENT CONSULTATION Name: TYRELL DEL VALLE Room #: REG SAMMY Emily#: [id number] Admission: 05/25/18 Attend Phys: Tim Marr MD Discharge: Date of : 60 Report #: [id number] THIS REPORT FOR: //name// CC: Nate Marr DATE OF SERVICE: 05/25/2018 PROCEDURE: Implant of 2 [employer] Octad spinal cord stimulator leads for trial. Spot trial of spinal cord stimulation. INDICATIONS: Post-laminectomy syndrome with bilateral lumbar radiculopathy, right worse than left. HISTORY: The patient is a pleasant 58-year-old who has been suffering with chronic intractable pain for many years. She has recently been managed with epidural injections and medication. The vast majority of her pain is across her low back and radiating into her legs. She has had a previous laminectomy. She is an ideal candidate for spinal cord stimulation trial. We have discussed at length risks and benefits. She has been preauthorized and has passed her review with a psychologist and I think she remains an excellent candidate. We are hopeful that improvement of her pain will be of benefit and adjunct to treatment of her chronic depression. PROCEDURE: After informed consent. She was placed in a prone position in the fluoroscopic suite. She was prepped and draped in surgical fashion. C-arm guidance was facilitated with sterile C-arm. We began first by anesthetizing to the left of midline at the level below the L1-L2 interspace and on first attempt, I advanced a 14-gauge Tuohy type curved epidural needle into the epidural space with loss of resistance technique. There was no blood or CSF aspirated. The first lead advanced easily and centrally into the midline to a level of T7. The lead appeared to be slightly to the right of midline. The lead was tested and there was good achievement of right-sided stimulation involving the entire leg. The needle was left in place. The skin was anesthetized to the right of midline and the second needle was advanced in similar fashion into the epidural space on the first attempt with loss of resistance. No blood or CSF aspirated. The second lead advanced into the epidural space was slightly to the right of the first. It was left in place. We retracted the first lead and moved it slightly to the left. Fortunately, there was no scar tissue and the leads were manipulated without much difficulty into excellent position within the epidural space just to the right and left of midline. Testing showed that we had excellent bilateral coverage. We counted to ensure location of the leads; however, on first counting we were one space higher than we had intended. We then readjusted the leads. They were pulled to a position with the tip resting at the bottom of T7 with the lead slightly staggered. I confirmed with Reed Gerard, and he was happy with the lead [address] [address] PAIN MANAGEMENT CONSULTATION Name: TYRELL DLE VALLE Room #: REG SAMMY Diaz#: [id number] Admission: 05/25/18 Attend Phys: Tim Marr MD Discharge: Date of : 60 Report #: [id number] placement for his manipulations and programming efforts going forward for the patient's particular pain. At one point, we had some slight coverage into the chest wall, but we completely eliminated that with repositioning. Once we were pleased with the needle placement, we removed both needles. The skin was prepped with Mastisol to protect from the tape and Steri-Strips and a tape barrier were applied in a sterile fashion. The leads were connected to the device for programming and applied to the left side of her low back. There were no complications. The patient tolerated the procedure well. We felt leads were in excellent position as she was moved into the recovery. She did experience some low back pain as she remained in our office for a few hours, waiting for transportation. She was receiving some coverage into both legs as we had hoped and she will be in touch with the [employer] representatives over the course of the next several days as we continue the trial. Plan to remove the leads sometime later this week either or Friday. By: 1113 20 Tim Marr MD /bowen
[2018-05-25 07:15] VITALS: BP 104/58
== END | disposition home or self-care (01) ==
LOC: PAIN 07:02
DX: M96.1 Postlaminectomy syndrome, not elsewhere classified (principal); M54.16 Radiculopathy, lumbar region; G89.29 Other chronic pain; F17.210 Nicotine dependence, cigarettes, uncomplicated; Z98.890 Other specified postprocedural states; Z88.0 Allergy status to penicillin; Z88.8 Allergy status to other drugs, medicaments and biological substances; Z79.899 Other long term (current) drug therapy

== ENCOUNTER → 2018-06-01 | Outpatient (CLI) | payer OTHER ==
[~2018-06-01] VITALS: Ht 170.2 cm; Wt 77.1 kg
--- NOTE | ~2018-06-01 | HPC ---
[facility] [address] [place] [address] PAIN MANAGEMENT CONSULTATION Name: TYRELL DEL VALLE Room #: REG [facility] Siomara.#: [id number] Admission: 06/01/18 Attend Phys: Tim Marr MD Discharge: Date of : 60 Report #: [id number] THIS REPORT FOR: //name// CC: Gavino Marr DATE OF SERVICE: 06/01/2018 Followup visit for this patient who had spinal cord stimulator placed 1 week ago. HISTORY OF PRESENT ILLNESS: The patient returns to pain clinic today to discuss her weeklong trial. She had seen improvement. Her range of improvement is roughly 50%, at times, more so. She was able to slightly increase her activities including standing and walking. Overall, she feels that she would like to go forward with an implant. I quizzed her heavily about her response since it was not over the top. I let her know that there are patients who seemed to have the best outcomes over a period of time and those who have dramatic improvements to the point where they are very disappointed to have their trial taken out. I would see her trial more as a modest improvement, particularly in the right leg radicular symptoms. She says her left leg feels good, but it was never quite as bad. She continues to have some pain across her low back. Today, she spent more time discussing symptom that she had not mentioned at least openly to me at previous visit. She has pain around her rectum and around the very tip of her sacrum. The coccyx is slightly tender. She has a history of breast cancer. She has not had a colonoscopy in a number of years, but when she did it, they took out several polyps. She denies any melena or blood in her stool. It has been some time since she has had a rectal or pelvic exam. She sees Deborah Magaña. Leads were removed today. Site looks good. There is no evidence of infection. IMPRESSION: 1. Post-laminectomy syndrome with bilateral lumbar radiculopathy, right worse than left. 2. Chronic rectal pain. History of breast cancer. She has history of multiple polyps. 3. Gastroesophageal reflux. 4. History of severe depression. 5. Management of high risk medications under terms of written opioid agreement. Her current use of oxycodone is roughly 30 MME, oxycodone 7.5/325 three times daily. [address] [address] PAIN MANAGEMENT CONSULTATION Name: IVONTYRELL ADAME Room #: REG CLI Emily#: [id number] Admission: 06/01/18 Attend Phys: Tim Marr MD Discharge: Date of : 60 Report #: [id number] RECOMMENDATIONS: I have told her that the spinal cord stimulator is a tool that can be placed in her management box for managing her chronic intractable pain. She understands that the stimulator does not provide complete relief or care. She also understands that given her response, she should not expect more than she received from her trial. When she makes a decision to go forward, she should base it upon that. There is no question she got some relief and if we consider 50-75% somewhere in that range as an improvement then she would be a candidate to go forward with permanent implant. I have also told her; however, that many patients find that the permanent implant 1-2years later is no longer providing relief. I also asked her if she felt that she could go off of her opioid medications if she had the stimulator. She reported that was one of her goals. We agreed to refer her on to Dr. Ruby for surgical implant. Someone from his team may be able to provide that for her before the end of the year. She will make an appointment. Questions were asked and answered regarding ongoing management of chronic intractable pain. She has current medications ready and available for the next 2 months, oxycodone 7.5/325 three tablets per day. Followup visit is planned for medication management and I will be available for questions if necessary. By: [id number] Tim Marr MD /nt
[2018-06-01 09:01] VITALS: BP 109/54
== END ==
LOC: PAIN 06:52
DX: M96.1 Postlaminectomy syndrome, not elsewhere classified (principal); M54.16 Radiculopathy, lumbar region; K62.89 Other specified diseases of anus and rectum; K62.1 Rectal polyp; K21.9 Gastro-esophageal reflux disease without esophagitis; Z86.59 Personal history of other mental and behavioral disorders; Z85.3 Personal history of malignant neoplasm of breast; Z79.899 Other long term (current) drug therapy

== ENCOUNTER → 2018-08-20 | Outpatient (CLI) | payer OTHER ==
[~2018-08-20] VITALS: Ht 172.7 cm; Wt 78.9 kg
[~2018-08-20] MED LIST changes: +ARIMIDEX1 MG PO; +OXYCODONE HCL10 MG PO
[2018-08-20 13:39] VITALS: BP 114/68
--- NOTE | 2018-08-20 13:57 | NUR ---
Pain Clinic Assessment: 1. History of Osteoarthritis: GENERALIZED B/L KNEES, ELBOWS, SHOULDERS History of Rheumatoid Arthritis: Not Applicable 2. Height: 5 ft. 8 in. 172.7 cm. Weight: 174.0 lb. oz. 78.926 kg. Patient's BMI: 26.5 3. Vital Signs: BP: 114/68 Pulse: 88 Resp: 16 Temp: 02 Sat: 98 ECG Mon: 4. Pain Intensity: 9 5. Fall Risk: Dizziness: N Needs help standing or walking: Y Fallen in the last 3 months: N Fall risk comments: USING A WALKER AT ALL TIMES HAS ASSISTANCE 6. Patient on Blood Thinner: None 7. History of Hypertension: Y 8. Opioid Therapy greater than 6 weeks: Y Opiate Contract Signed: 02/29/16 9. Risk Assessment Tool Provided: LOW RISK 09/27 10. Functional Assessment Tool: 11. Recreational Drug Use: Current within past 3 mos Drug Type: MARIJUANA Tobacco Use: Current Every Day Smoker Tobacco Type: Cigarettes Amount or Packs/day: 6 How Many Years: Alcohol Use: Yes Frequency: Special Occasions Quant:
--- NOTE | 2018-08-21 07:31 | HPC ---
[facility] [place] [address] PAIN MANAGEMENT CONSULTATION Name: TYRELL DEL VALLE WENDI Room #: REG SAMMY Diaz#: [id number] Admission: 08/20/18 Attend Phys: Opal Faulkner Discharge: Date of : 60 Report #: [id number] THIS REPORT FOR: //name// CC: Opal Ohe [facility] DATE OF SERVICE: 08/20/2018 CHIEF COMPLAINT: Low back pain and lumbar radiculopathy, status post laminectomy. HISTORY OF PRESENT ILLNESS: The patient returns to the pain clinic today for medication management in June. The patient was scheduled for a spinal cord stimulator surgery on 07/24, complications arose. She was unable to have the paddle leads placed. She had what sounds like laminectomy. I do not have records in front of me for that and she does have the battery pack still in place for the spinal cord stimulator, but she says Dr. Ruby will attempt to place the paddle leads at another time. Right now, she is healing from her surgery. She tells me that her lower back has been hurting quite significantly that they gave her oxycodone with no Tylenol in the hospital and she is requesting a refill of that medication as well as Valium. She tells me that she has healed in the back. She feels that that medicine is helpful in controlling her pain. She does rate her pain today at a 9, telling me that it is a ripping, stabbing, heated pain with numbness in her legs. She tells me that walking, standing and sitting is worse. Sleep and this oxycodone 10 mg tablets have been helpful. She is using a walker today. She tells me that she is not having any constipation. She tells me that her blood sugars have been elevated. She continues on dexamethasone from Dr. Ruby's office following the surgery. She would like refills of medications and what we were able to do. She tells me that she is seeing doctors for her postop visit tomorrow and may know a little bit more when they may try to do the replacement of the leads, but it may not be until summer. ALLERGIES: PENICILLIN, MORPHINE, TETRACYCLINE, ERYTHROMYCIN, METFORMIN AND GLYBURIDE. CURRENT MEDICATIONS: Arimidex 1 mg daily, oxycodone 7.5/325 three times a day, potassium daily, MiraLax daily, vitamin D3 daily, lisinopril 20 mg daily, doxepin 150 mg at bedtime, Lipitor 20 mg at bedtime, insulin Lantus 16 units at bedtime, Celexa 10 mg daily, sliding scale NovoLog before meals, atenolol 1 tablet 100 mg tablet at bedtime, omeprazole daily, hydrochlorothiazide 50 mg daily. PQRS: 1. History of osteoarthritis in her knees, elbows, shoulders and back. Den[place] [address] PAIN MANAGEMENT CONSULTATION Name: TYRELL DEL VALLE Room #: REG SAMMY Diaz#: [id number] Admission: 08/20/18 Attend Phys: Opal Faulkner Discharge: Date of : 60 Report #: [id number] 2. Height is 5 feet 8 inches, weight is 174. BMI is 26. 3. Vital signs: Blood pressure 114/68, pulse is 88, respirations 16, oxygen sat is 98. 4. Pain score is 9/10. 5. Fall risk. Denies dizziness. Does use a walker today for assistance and has not fallen in the last 3 months. 6. Denies blood thinners. She does take antihypertensive medicines. 7. Opioid therapy is greater than 6 weeks, therefore, an opioid signed contract is on the chart. 8. Her risk assessment tool is low. Her functional assessment is 66/70. 9. Recreational drug use. She does use marijuana. She continues to smoke cigarettes every day and she uses alcohol occasionally. We checked the prescription monitoring system. The patient is filling appropriately, though she did fill some medicines from [facility] after her hospitalization. Dr. Marr was made aware of these prescriptions before her discharge. She did not call the clinic to report this. I reminded her that she should call us anytime she fills medications since she is under contract with us. PHYSICAL EXAMINATION: GENERAL: This is a well-developed, well-nourished female who appears her stated age. She is alert and orientated. Her affect is appropriate. HEENT: Normocephalic, atraumatic. Extraocular eye muscles are intact. Mucous membranes are moist. Her hearing is adequate. NECK: Without JVD or adenopathy. She does have a surgical well-healed scar. MUSCULOSKELETAL: The patient's lower extremity strength judged to be 4/5 in all major muscle groups bilaterally. Complains of numbness and tingling that radiates down her legs bilaterally to her feet. She has a healing scar in her midline of her lower back as well as over her buttock area from her recent surgery. She has decreased sensation bilaterally in the lower extremities. She has a positive straight leg raising bilaterally. IMPRESSION: 1. Chronic low back pain with radiculopathy. 2. History of severe depression. 3. History of breast cancer, status post treatment. 4. Gastroesophageal reflux disease. 5. Post-laminectomy. 6. Management of high risk medication under terms of written opioid agreement. We reviewed the fact that opiate medications are being used to provide analgesia adequate to support activities of daily living, not attempting to achieve a specific pain score on the 0-10 Visual Analog Scale. The current opiate medications are providing sufficient analgesia to allow the patient to participate in activities of daily living. The patient is not exhibiting any aberrant behavior suggestive of drug diversion. The patient is not having any [facility] [address] [place] [address] PAIN MANAGEMENT CONSULTATION Name: TYRELL DEL VALLE [facility] #[facility] [id number] Admission: 08/20/18 Attend Phys: Opal Faulkner Discharge: Date of : 60 Report #: [id number] adverse reactions to medications. The patient is not suffering from daytime somnolence or mental acuity changes. The patient is managing opiate-induced constipation with appropriate [id number] agents and dietary considerations. The patient was counseled on concern for caution with operating a motor vehicle while using opiate medications. A physical exam was performed and the patient's functional status was evaluated. All patients with back pain were advised against the bed rest greater than 4 days and were advised to return to normal activities. Pain score assessment was noted and the treatment plan was reviewed with the patient. All current medications, both prescribed and OTC were reviewed and reconciled on the electronic medical record. Tobacco screening was accomplished and smoking cessation was advised when indicated. BMI was noted and diet/exercise modification was recommended for all patients following outside normal parameters. I reviewed with the patient today their responsibilities to safeguard prescription medications, reviewed their responsibility to utilize medications only as prescribed by the physician. They are to seek and receive pain medications only from 1 physician group ( [facility]). They are to use 1 pharmacy and keep the clinic informed if they change pharmacies. Their responsibilities include making followup visits in a timely fashion and to avoid abrupt discontinuation of medication usage. Their responsibilities further include bringing their medications (bottles from the pharmacy with residual pills) to the visit for possible confirmation of pill counts and the patient understands it is their responsibility to submit to random drug screens to ensure both that the medications prescribed are present, and that no other controlled substances are present. All prescriptions provided today were generated electronically. PLAN: 1. We discussed treatment options with the patient today. She tells me that she was in the hospital for 16 days following what was originally to be a spinal cord stimulator placement. Evidently, there were some issues that arose. She ended up with, it sounds like laminectomy. The patient is unclear what the surgery was. She does have her generator placed, but no leads for the spinal cord stimulator. She will have those done in the near future. While she was in the hospital, she was given oxycodone 10 mg without the Tylenol. She found those to be very helpful in relieving her pain and is requesting those today, so script given after discussion with Dr. Tim Marr of oxycodone 10 IR, #90 one 3 times a day for 1 month. For second month, she will decrease back to Percocet 7.5/325, #90 one tablet 3 times a day. 2. The patient will return to the office in 2 months' time period and we will discuss her medications and hopefully able to continue her on oxycodone 7.5/325. The patient is agreeable with this. She feels like right now she needs to continue the higher level of oxycodone, which still falls under the current MME [facility] [address] [place] [address] PAIN MANAGEMENT CONSULTATION Name: TYRELL DEL VALLE Room #: REG CLAkosua Stringer#: [id number] Admission: 08/20/18 Attend Phys: Opal Faulkner Discharge: Date of : 60 Report #: [id number] guidelines giving her under 50 MMEs per day. 3. The patient did request of diazepam. I told her that that is not a medicine that we usually prescribe in this office and the patient said that she is fine, she could do without the Valium and did not want me to even ask the physician regarding that medication. 4. I instructed the patient to continue her dexamethasone, which she shows me there is still about a week's worth of medicine in the bottle that Dr. Ruby had prescribed and reminded her that she needs to be mindful of her blood sugars that that will cause them to rise. The patient tells me they have been averaging about 180-200 when she does check them. She is adjusting her sliding scale accordingly. 5. The patient will be seen in 2 months' time period. The patient is seen today in collaboration with Dr. Tim Marr. He did see the patient briefly today. <ELECTRONICALLY SIGNED> By: Opal Faulkner 08/21/18 0731 [id number] Opal Faulkner /bowen
== END ==
LOC: PAIN 07:17
DX: M54.16 Radiculopathy, lumbar region (principal); M96.1 Postlaminectomy syndrome, not elsewhere classified; K21.9 Gastro-esophageal reflux disease without esophagitis; F32.9 Major depressive disorder, single episode, unspecified; Z79.891 Long term (current) use of opiate analgesic; Z85.3 Personal history of malignant neoplasm of breast; Z79.899 Other long term (current) drug therapy

== ENCOUNTER → 2018-10-12 | Outpatient (CLI) | payer OTHER ==
[~2018-10-12] VITALS: Ht 172.7 cm; Wt 78.6 kg
[~2018-10-12] MED LIST changes: +FISH OIL OMEGA1 EAC3 PO
--- NOTE | ~2018-10-12 | HPC ---
[facility] [address] [place] [address] PAIN MANAGEMENT CONSULTATION Name: TYRELL DEL VALLE Room #: REG SAMMY Linda.#: [id number] Admission: 10/12/18 ������������������ Attend Phys: Tim Marr MD Discharge: ������������������ Date of : 60 Report #: [id number] THIS REPORT FOR: //name// CC: NATY Marr DATE OF SERVICE: 10/12/2018 Followup visit for chronic low back pain, post-laminectomy syndrome with radiculopathy, status post failed spinal cord stimulator placement. The patient is in the clinic today for followup for chronic pain. She is here today with a walker. She is depressed and in pain. Her pain score is an 8/10. She has pain across her low back radiating into both legs. She has tenderness along the scar from the area where her spinal cord stimulator was placed. She still has a internal pulse generator in the left flank, but this is idle and there is no lead in the epidural space. She has had a rough winter. The cold has exacerbated her chronic pain. She has clear radiculopathy and would like an epidural injection. In addition, I provided with oxycodone. We have tried to find the lowest effective dose. I tapered her to 7.5/325 tablets at a previous visit, but she feels her pain is not nearly as well controlled as she was at 10/325. I have agreed to increase it back up to 3 tablets a day at that strength which will equal 45 morphine milligram equivalents per day. She is grateful for the relief that she receives from the medication. She has better function when she takes it. She is able to ambulate with greater ease, reducing her pain to a more manageable level while clearly not eliminating it. She denies side effects. She understands the seriousness of using opioid medication and safeguards it carefully under terms of an opioid agreement. PHYSICAL EXAMINATION: She is a sad 58-year-old female. She appears depressed today. She was tearful on a couple of occasions because of her limitations. She is able to move from sitting to standing position with some difficulty and walks with a walker. She does not appear to be a fall risk as long as she is careful. Tenderness around her scars is noted particularly one in the mid back. Examination of the lumbosacral region reveals pain across the lumbosacral segment, pain with forward flexion and extension. Most of the pain across the scar from previous surgery. Straight leg raising bilaterally reproduces pain into the L4-L5 distribution. She also has some pain in the anterior thigh consistent with L3 radiculopathy. IMPRESSION: [facility] [address] [place] [address] PAIN MANAGEMENT CONSULTATION Name: TYRELL DEL VALLE Room #: REG SAMMY Diaz#: [id number] Admission: 10/12/18 ������������������ Attend Phys: Tim Marr MD Discharge: ������������������ Date of : 60 Report #: [id number] 1. Post-laminectomy syndrome with radiculopathy. 2. History of depression. She continues to be depressed related to her situation and failure of her stimulator as well as the increase in pain since the surgery. 3. History of breast cancer. 4. Management of high risk medications under terms of an opioid agreement. PLAN: I renewed her medications for her under terms of our agreement and I provided her today with an epidural injection under fluoroscopic guidance. We will follow up with her in about 2 months. PROCEDURE: Epidural steroid injection under fluoroscopic guidance. She was taken to fluoroscopic suite, placed prone, skin prepped with ChloraPrep. Skin anesthetized over the L3-L4 interspace. A 20-gauge Tuohy epidural needle was advanced into the epidural space with loss of resistance technique. There was no blood or CSF aspirated. 1 mL of Omnipaque injected. Good spread of dye observed into the epidural space, was followed by 3 mL of 0.5% lidocaine mixed with 80 mg triamcinolone. She tolerated the procedure well and was observed for 45 minutes and discharged. Followup visit planned in 1-2 months. ��������������������������������������������� ���������������������������������������� By: ��������������������������������������������� [id number] Tim Marr MD /nt
[2018-10-12 15:06] VITALS: BP 132/74
--- NOTE | 2018-10-12 15:26 | NUR ---
Pain Clinic Assessment: 1. History of Osteoarthritis: GENERALIZED B/L KNEES, ELBOWS, SHOULDERS History of Rheumatoid Arthritis: Not Applicable 2. Height: 5 ft. 8 in. 172.7 cm. Weight: 173.2 lb. oz. 78.563 kg. Patient's BMI: 26.3 3. Vital Signs: BP: 132/74 Pulse: 107 Resp: 14 Temp: 02 Sat: 97 ECG Mon: 4. Pain Intensity: 8 5. Fall Risk: Dizziness: N Needs help standing or walking: Y Fallen in the last 3 months: Y Fall risk comments: USING A WALKER AT ALL TIMES HAS ASSISTANCE 6. Patient on Blood Thinner: None 7. History of Hypertension: Y 8. Opioid Therapy greater than 6 weeks: Y Opiate Contract Signed: 02/29/16 9. Risk Assessment Tool Provided: LOW RISK 09/27 10. Functional Assessment Tool: 11. Recreational Drug Use: Past greater than 3 mos Drug Type: Tobacco Use: Current Every Day Smoker Tobacco Type: Amount or Packs/day: How Many Years: Alcohol Use: Yes Frequency: Quant:
== END | disposition home or self-care (01) ==
LOC: PAIN 09-28 07:14
DX: M54.16 Radiculopathy, lumbar region (principal); M96.1 Postlaminectomy syndrome, not elsewhere classified; F17.210 Nicotine dependence, cigarettes, uncomplicated; Z86.59 Personal history of other mental and behavioral disorders; Z85.3 Personal history of malignant neoplasm of breast; Z79.891 Long term (current) use of opiate analgesic; Z98.890 Other specified postprocedural states; Z79.899 Other long term (current) drug therapy; Z88.0 Allergy status to penicillin; Z88.8 Allergy status to other drugs, medicaments and biological substances

== ENCOUNTER → 2018-12-02 | Outpatient (CLI) | payer OTHER | LOC: MRI 09:18 | DX: R10.9 Unspecified abdominal pain (principal); M61.451 Other calcification of muscle, right thigh; M61.452 Other calcification of muscle, left thigh; M43.16 Spondylolisthesis, lumbar region ==

== ENCOUNTER → 2018-12-15 | Outpatient (CLI) | payer OTHER ==
[~2018-12-15] VITALS: Ht 172.7 cm; Wt 76.9 kg
--- NOTE | ~2018-12-15 | HPC ---
[facility] [place] [address] [place] [address] PAIN MANAGEMENT CONSULTATION Name: TYRELL DEL VALLE Room #: REG Akosua ValdezLewisMilly.#: [id number] Admission: 12/15/18 ������������������ Attend Phys: Tim Marr MD Discharge: ������������������ Date of : 60 Report #: [id number] THIS REPORT FOR: //name// CC: NATY Marr DATE OF SERVICE: 12/15/2018 Followup visit for chronic intractable low back pain with spasticity and central cord syndrome. The patient returns to pain clinic today for an epidural injection. She has a number of pain generators and complains of a daily pain at an 8/10. She describes her pain as a ripping sensation in her low back radiating through her buttocks, especially on the left, radiating into the left foot. She also has pain in the right groin. She has difficulty with walking, standing and has some difficulty with all weightbearing activities. She also gets pain when she is lying in the same position. She is using ice, heat, rest and medication to help control her pain. She reports that she has really been struggling with pain. Right now, she has been decreasing her oxycodone from 10/325-7.5/325 and has noticed a significant increase in pain with this 25% reduction. She is having difficulty sleeping as well. We spent a good deal of time today discussing medication management. Time spent in consultation today was about 25 minutes in addition to the procedure at the conclusion of the visit. PAST MEDICAL HISTORY: Significant for depression, hypertension, insulin-dependent diabetes, tobacco abuse, hyperlipidemia, obstructive sleep apnea, although she has not been using her sleep apnea mask because of discomfort. REVIEW OF SYSTEMS: Positive for nausea, vomiting, fatigue, weakness, night sweats, headaches, insomnia and depression. MEDICATIONS: Reviewed and reconciled in addition to medication for high blood pressure and hypercholesterolemia, she is on the antidepressant citalopram 10 mg daily as well as doxepin 150 mg at bedtime for sleep and depression. She takes oxycodone 7.5/325 three times daily. ALLERGIES: PENICILLIN, MORPHINE, TETRACYCLINE, ERYTHROMYCIN, METFORMIN, GLIMEPIRIDE. [facility] [address] [place] [address] PAIN MANAGEMENT CONSULTATION Name: IVONTYRELL ADAME Room #: REG [facility]#: [id number] Admission: 12/15/18 ������������������ Attend Phys: Tim aMrr MD Discharge: ������������������ Date of : 60 Report #: [id number] PHYSICAL EXAMINATION: GENERAL: Affect depressed. VITAL SIGNS: Blood pressure 132/74, heart rate 107, respirations 14. She is 5 feet 8 inches, 173 pounds, BMI of 26.3. Her speech is clear. She is discouraged by her ongoing persistent pain. MUSCULOSKELETAL: Neck: Supple. There is tenderness, however, throughout the neck, thoracic spine and lumbar spine. There are scars from previous surgery noted throughout the back and she is uncomfortable. Straight leg raising is positive bilaterally, worse on the left, which radiates all the way through the L4-L5 distribution. Sensation is intact. She has generalized weakness of the lower extremities. X-rays reviewed include an MRI, which shows that there is evidence of a spinal stenosis as well as post-laminectomy. The thoracic spine demonstrates a high T2 signal consistent with some cord edema, which may have occurred at the time of placement of her spinal cord stimulator lead, which was difficult and ultimately aborted. PLAN: 1. I have recommended that she increase her oxycodone back to 10/325. 2. Left L4-L5 transforaminal epidural injection under fluoroscopic guidance. PROCEDURE: She was taken to fluoroscopic suite, placed prone, skin prepped with ChloraPrep. Skin anesthetized over the L4-L5 interspace in neural foramen. Using triplanar fluoroscopic views, I advanced the needle into the neural foramen and an excellent epidurogram was achieved with 1 mL of omnipaque. This was then followed by 3 mL of 1% lidocaine mixed with 80 mg of triamcinolone. She tolerated the procedure well. Pain score was reduced by over 50%. She was taken to recovery room where she was observed and then discharged. Medications were written for this month for release in 4 and 8 weeks. We will see her back in the pain clinic in 3 months. ��������������������������������������������� ���������������������������������������� By: ��������������������������������������������� [id number] Tim Marr MD /nt
[2018-12-15 10:44] VITALS: BP 116/83
--- NOTE | 2018-12-15 10:54 | NUR ---
Pain Clinic Assessment: 1. History of Osteoarthritis: GENERALIZED B/L KNEES, ELBOWS, SHOULDERS History of Rheumatoid Arthritis: Not Applicable 2. Height: 5 ft. 8 in. 172.7 cm. Weight: 169.6 lb. oz. 76.930 kg. Patient's BMI: 25.8 3. Vital Signs: BP: 116/83 Pulse: 119 Resp: 14 Temp: 02 Sat: 97 ECG Mon: 4. Pain Intensity: 7 5. Fall Risk: Dizziness: Y Needs help standing or walking: N Fallen in the last 3 months: N Fall risk comments: USING A WALKER AT ALL TIMES HAS ASSISTANCE 6. Patient on Blood Thinner: None 7. History of Hypertension: Y 8. Opioid Therapy greater than 6 weeks: Y Opiate Contract Signed: 02/29/16 9. Risk Assessment Tool Provided: LOW RISK 09/27 10. Functional Assessment Tool: 11. Recreational Drug Use: Past greater than 3 mos Drug Type: Tobacco Use: Current Every Day Smoker Tobacco Type: Cigarettes Amount or Packs/day: 1/2 How Many Years: Alcohol Use: Yes Frequency: Special Occasions Quant: 1-2
== END | disposition home or self-care (01) ==
LOC: PAIN 06:48
DX: M54.16 Radiculopathy, lumbar region (principal); G89.29 Other chronic pain; S14.129D Central cord syndrome at unspecified level of cervical spinal cord, subsequent encounter; I10 Essential (primary) hypertension; E11.9 Type 2 diabetes mellitus without complications; F17.210 Nicotine dependence, cigarettes, uncomplicated; E78.5 Hyperlipidemia, unspecified; G47.33 Obstructive sleep apnea (adult) (pediatric); E78.00 Pure hypercholesterolemia, unspecified; Z88.0 Allergy status to penicillin; Z88.8 Allergy status to other drugs, medicaments and biological substances; Z79.4 Long term (current) use of insulin; Z98.890 Other specified postprocedural states; Z79.899 Other long term (current) drug therapy; X58.XXXD Exposure to other specified factors, subsequent encounter

== ENCOUNTER → 2019-02-11 | Outpatient (CLI) | payer OTHER ==
[~2019-02-11] VITALS: Ht 170.2 cm; Wt 80.4 kg
[2019-02-11 13:46] VITALS: BP 104/65
--- NOTE | 2019-02-11 13:54 | NUR ---
Pain Clinic Assessment: 1. History of Osteoarthritis: GENERALIZED B/L KNEES, ELBOWS, SHOULDERS History of Rheumatoid Arthritis: Not Applicable 2. Height: 5 ft. 7 in. 170.2 cm. Weight: 177.2 lb. oz. 80.377 kg. Patient's BMI: 27.7 3. Vital Signs: BP: 104/65 Pulse: 109 Resp: 18 Temp: 02 Sat: 97 ECG Mon: 4. Pain Intensity: 8 5. Fall Risk: Dizziness: N Needs help standing or walking: Y Fallen in the last 3 months: N Fall risk comments: USING A WALKER AT ALL TIMES HAS ASSISTANCE 6. Patient on Blood Thinner: None 7. History of Hypertension: Y 8. Opioid Therapy greater than 6 weeks: Y Opiate Contract Signed: 02/29/16 9. Risk Assessment Tool Provided: LOW RISK 09/27 10. Functional Assessment Tool: 11. Recreational Drug Use: Current within past 3 mos Drug Type: MARIJUANA Tobacco Use: Current Every Day Smoker Tobacco Type: Cigarettes Amount or Packs/day: 1-2 DAY How Many Years: Alcohol Use: Yes Frequency: Special Occasions Quant: 1-2
--- NOTE | 2019-02-12 08:26 | HPC ---
[facility] [address] [place] [address] PAIN MANAGEMENT CONSULTATION Name: TYRELL DEL VALLE Room #: REG SAMMY Emily#: [id number] Admission: 02/11/19 ������������������ Attend Phys: Opal Faulkner Discharge: ������������������ Date of : 60 Report #: [id number] THIS REPORT FOR: //name// CC: Opal Marr MD DATE OF SERVICE: 02/11/2019 CHIEF COMPLAINT: Chronic intractable low back pain. HISTORY OF PRESENT ILLNESS: This is a 58-year-old female who returns to the pain clinic today for her medication management. She recently had back surgery with Dr. Gavino Ruby less than 3 weeks ago. She had a synovial cyst removed. She tells me she is working with physical therapy, occupational therapy and a home health nurse at home and continues to slowly feel like she is getting better. She does have significant weakness in her lower extremities, but her lumbar back does not hurt as it did before. Her pain score though today is 8/10 in her bilateral legs, low back and buttock. She tells me the left foot is where most of her pain is located today. It is a burning, stabbing pain and continues to be very numb. The patient is currently wearing a fentanyl patch that Dr. Ruby has given her, this is 25 mcg. She is unsure if she is going to wean down on this medication or stop it abruptly. She is going to have a followup appointment with Dr. Ruby's office soon. She will call them for an appointment. Today, she would like refills of her oxycodone 10/325 that she is taking from Dr. Marr for her breakthrough pain medicine. She denies problems with constipation as long as she takes MiraLax daily. ALLERGIES: PENICILLIN, MORPHINE, TETRACYCLINE, ERYTHROMYCIN, METFORMIN. CURRENT LIST OF MEDICATIONS: Oxycodone 10/325 every 8 hours, fish oil, Arimidex, potassium, MiraLax, lisinopril, doxepin, Lipitor, Lantus, Celexa, NovoLog, Prilosec, hydrochlorothiazide, and fentanyl patch 25 mcg. PQRS: 1. The patient has significant generalized osteoarthritis involving her spine, elbows, knees, shoulders. She denies any rheumatoid arthritis. 2. Height is 5 feet 7 inches, weight is 177, BMI is 27. 3. Vital signs: Blood pressure 104/65, pulse is 109, respirations 18, oxygen sat is 97. 4. Pain score is 8/10. 5. Denies dizziness. Does need help walking. [place] [address] PAIN MANAGEMENT CONSULTATION Name: TYRELL DEL VALLE Room #: REG SAMMY Diaz#: [id number] Admission: 02/11/19 ������������������ Attend Phys: Opal Faulkner Discharge: ������������������ Date of : 60 Report #: [id number] and has not fallen in the last 3 months. 6. The patient is not on any blood thinners, does take medicine for hypertension. 7. Opioid therapy is greater than 6 weeks; therefore, an opioid signed contract is on the chart. Her risk assessment tool is low. Functional assessment is 66/70. 8. The patient uses marijuana and does also continue to smoke cigarettes and occasionally drinks alcohol as well. According to the prescription monitoring system, the patient did fill several scripts from Dr. Gavino Ruby that Dr. Marr was aware of. PHYSICAL EXAMINATION: GENERAL: This is a well-developed, well-nourished 58-year-old female who appears older than her stated age. She is alert and orientated and her pain is an 8/10 today. HEENT: Normocephalic, atraumatic. Extraocular eye muscles are intact. Mucous membranes are dry. MUSCULOSKELETAL: Scars present from her previous surgery. They are well-healed in the midline of her back. Straight leg raising is positive bilaterally, worse on the left, radiates all the way down till the L4-L5 dermatomal distribution. Complains of numbness in her left leg. She has generalized deconditioning and weakness in her lower extremities as well. The patient walks with an antalgic gait. We reviewed the fact that opiate medications are being used to provide analgesia adequate to support activities of daily living, not attempting to achieve a specific pain score on the 0-10 Visual Analog Scale. The current opiate medications are providing sufficient analgesia to allow the patient to participate in activities of daily living. The patient is not exhibiting any aberrant behavior suggestive of drug diversion. The patient is not having any adverse reactions to medications. The patient is not suffering from daytime somnolence or mental acuity changes. The patient is managing opiate-induced constipation with appropriate [id number] agents and dietary considerations. The patient was counseled on concern for caution with operating a motor vehicle while using opiate medications. A physical exam was performed and the patient's functional status was evaluated. All patients with back pain were advised against the bed rest greater than 4 days and were advised to return to normal activities. Pain score assessment was noted and the treatment plan was reviewed with the patient. All current medications, both prescribed and OTC were reviewed and reconciled on the electronic medical record. Tobacco screening was accomplished and smoking cessation was advised when indicated. BMI was noted and diet/exercise modification was recommended for all patients following outside normal parameters. [facility] [address] [place] [address] PAIN MANAGEMENT CONSULTATION Name: TYRELL DEL VALLE Room #: REG JONNATHANAkosua Diaz#: [id number] Admission: 02/11/19 ������������������ Attend Phys: Opal ROHIT Faulkner Discharge: ������������������ Date of : 60 Report #: [id number] I reviewed with the patient today their responsibilities to safeguard prescription medications, reviewed their responsibility to utilize medications only as prescribed by the physician. They are to seek and receive pain medications only from 1 physician group ( [facility]). They are to use 1 pharmacy and keep the clinic informed if they change pharmacies. Their responsibilities include making followup visits in a timely fashion and to avoid abrupt discontinuation of medication usage. Their responsibilities further include bringing their medications (bottles from the pharmacy with residual pills) to the visit for possible confirmation of pill counts and the patient understands it is their responsibility to submit to random drug screens to ensure both that the medications prescribed are present, and that no other controlled substances are present. All prescriptions provided today were generated electronically. IMPRESSION: 1. Post-laminectomy syndrome with radiculopathy. 2. History of depression. 3. Spinal cord failure, spinal cord stimulator. 4. History of breast cancer. 5. Chronic low back pain. 6. Opioid medication under terms of written agreement. PLAN: 1. We discussed treatment options with the patient today. The patient currently is wearing a fentanyl patch. I explained to her that Dr. Ruby will have to reorder that if he wants to continue that. She thinks that his plan is to stop it. I encouraged her to call them and discuss if he is going to wean her to 12.5 mcg and then off or if he is stopping it abruptly. The patient is instructed to continue her Percocet 10/325 three times a day as needed for pain. 2. The patient does have some disability paperwork that she would like our office to fill out. She informs me that Dr. Marr had filled these out in the past and they are to be done yearly. I will pass this along to him. 3. I encouraged the patient to continue doing her exercises and therapies at home. I explained to her that it can take 6 months to a year before she is fully healed from her back surgery and it has only been 3 weeks and to not be discouraged and depressed that she is still continued to having pain. 4. Scripts given for oxycodone 10/325, #90 for today, release in 4-week and release in 8 weeks. This places her at 45 morphine mEq, well below the CDC guidelines. The patient will return in followup in 3 months. The patient is seen with Dr. Marr today who collaborated care. ��������������������������������������������� <ELECTRONICALLY SIGNED> ���������������������������������������� By: Opal Faulkner ��������������������������������������������� 02/12/19 0826 [id number] Opal Faulkner /bowen
== END ==
LOC: PAIN 01-04 06:47
DX: M54.16 Radiculopathy, lumbar region (principal); M54.5 Low back pain; G89.29 Other chronic pain; M96.1 Postlaminectomy syndrome, not elsewhere classified; F32.9 Major depressive disorder, single episode, unspecified; Z85.3 Personal history of malignant neoplasm of breast; Z79.891 Long term (current) use of opiate analgesic

== ENCOUNTER → 2019-03-11 | Outpatient (CLI) | payer OTHER ==
[~2019-03-11] VITALS: Ht 172.7 cm; Wt 76.7 kg
[~2019-03-11] MED LIST changes: +LYRICA 50 MG50 MG PO; +NUCYNTA50 MG PO; +PERCOCET 10-321 EACH PO
--- NOTE | ~2019-03-11 | HPC ---
[facility] [address] [place] [address] PAIN MANAGEMENT CONSULTATION Name: TYRELL DEL VALLE Room #: REG Akosua Linda.#: [id number] Admission: 03/11/19 Attend Phys: Tim Marr MD Discharge: Date of : 60 Report #: [id number] THIS REPORT FOR: //name// CC: Gavino Marr DATE OF SERVICE: 03/11/2019 CHIEF COMPLAINT: Followup visit for chronic pain. HISTORY OF PRESENT ILLNESS: The patient is here today for a lumbar radiculopathy. Her complex history is outlined throughout her chart. She is recovering from surgery. She had a synovial cyst removed recently. She continues to have radicular symptoms into both legs. We also reviewed medications today. I have made a suggestion that we transition her to a completely different opioid. I have recommended Tapentadol 50 mg 3 times daily. This will be roughly 60 MME by calculation, will be a slightly higher dose for her. I would like her to taper off of her antidepressant doxepin due to the norepinephrine effects of Tapentadol. This would be in place of her oxycodone. She will continue on her Lyrica. PQRS REVIEW: 1. History of generalized osteoarthritis involving multiple joints, knees, elbows, shoulders. 2. BMI 25.7. 3. Vital signs: Blood pressure 128/79, heart rate 93, respirations 16, O2 sat 99. 4. Pain intensity 8/10. 5. She has fallen in the last 3 months and is using a walker at all times. She is very careful on her feet. 6. She is on no blood thinners. 7. History of hypertension, under treatment. All medications were removed and reconciled. 8. She is on an opioid agreement. Only Dr. Ruby and myself have been prescribing medicines. I have reviewed her prescription drug monitoring program information. Because of our relationship, Dr. Ruby and I communicate frequently about her medication and we keep a close track of it. 9. Risk tool assessment is 3, which is moderate. 10. Functional assessment score is 66, a very high interference of her pain with activities. 11. She continues to use alcohol and was counseled about concurrent use of alcohol with medication. She also smokes and was given counseling. [id number]. [address] [address] PAIN MANAGEMENT CONSULTATION Name: TYRELL DEL VALLE Room #: REG [facility] Linda.#: [id number] Admission: 03/11/19 Attend Phys: Tim Marr MD Discharge: Date of : 60 Report #: [id number] PHYSICAL EXAMINATION: VITAL SIGNS: As noted. GENERAL: She is pleasant, a little less depressed than I have seen her recently. She is heavily sunburned. NEUROLOGICAL: Movements from sitting to standing are antalgic. Her gait is weak and antalgic. She has tenderness across her lumbosacral segment. Bilateral straight leg raising is noted. Bilateral lower extremity weakness is noted. Sensation is diminished. The greatest pain follows an L4-L5 distribution. IMPRESSION: 1. Post-laminectomy syndrome with radiculopathy. 2. Chronic depression. 3. Medication management. 4. Spinal cord stimulator failure. 5. History of breast cancer. 6. Management of high risk medications under terms of written opioid agreement. PROCEDURE: Epidural injection under fluoroscopic guidance. She was taken to fluoroscopic suite, placed prone, skin prepped with ChloraPrep. Skin anesthetized at L3-L4 above her fusion. A 20-gauge Tuohy epidural needle advanced first attempt into the epidural space with loss of resistance. There was no blood or CSF aspirated. A 1 mL of Omnipaque was injected. Spread of dye observed into the epidural space followed by 3 mL of 0.5% lidocaine mixed with 80 mg triamcinolone. She tolerated the procedure well and was observed for 45 minutes and discharged. I did prescribe for her Nucynta just one month 50 mg t.i.d. We discussed the medication, we discussed the interaction with antidepressants. She understands to taper off of her doxepin and will call us if there are any questions or problems. We will determine whether we continue on this medication based upon her response. By: 1716 0214 Tim Marr MD /nt
[2019-03-11 12:48] VITALS: BP 128/79
--- NOTE | 2019-03-11 12:50 | NUR ---
Pain Clinic Assessment: 1. History of Osteoarthritis: GENERALIZED B/L KNEES, ELBOWS, SHOULDERS History of Rheumatoid Arthritis: Not Applicable 2. Height: 5 ft. 8 in. 172.7 cm. Weight: 169.0 lb. oz. 76.658 kg. Patient's BMI: 25.7 3. Vital Signs: BP: 128/79 Pulse: 93 Resp: 16 Temp: 02 Sat: 99 ECG Mon: 4. Pain Intensity: 8 5. Fall Risk: Dizziness: N Needs help standing or walking: N Fallen in the last 3 months: Y Fall risk comments: USING A WALKER AT ALL TIMES HAS ASSISTANCE 6. Patient on Blood Thinner: None 7. History of Hypertension: Y 8. Opioid Therapy greater than 6 weeks: Y Opiate Contract Signed: 02/29/16 9. Risk Assessment Tool Provided: LOW RISK 09/27 10. Functional Assessment Tool: 11. Recreational Drug Use: Current within past 3 mos Drug Type: Tobacco Use: Current Every Day Smoker Tobacco Type: Amount or Packs/day: How Many Years: Alcohol Use: Yes Frequency: Quant:
== END | disposition home or self-care (01) ==
LOC: PAIN 06:51
DX: M54.16 Radiculopathy, lumbar region (principal); M96.1 Postlaminectomy syndrome, not elsewhere classified; G89.29 Other chronic pain; I10 Essential (primary) hypertension; M19.90 Unspecified osteoarthritis, unspecified site; F32.89 Other specified depressive episodes; F17.210 Nicotine dependence, cigarettes, uncomplicated; Z88.0 Allergy status to penicillin; Z88.8 Allergy status to other drugs, medicaments and biological substances; Z79.891 Long term (current) use of opiate analgesic; Z98.890 Other specified postprocedural states; Z85.3 Personal history of malignant neoplasm of breast; Z79.899 Other long term (current) drug therapy

== ENCOUNTER → 2019-04-12 | Outpatient (CLI) | payer OTHER ==
[~2019-04-12] VITALS: Ht 172.7 cm; Wt 75.8 kg
[~2019-04-12] MED LIST changes: +CHANTIX1 EACH PO; +LYRICA 75 MG CA75 MG PO; +OMEPRAZOLE 20 M20 M1 PO
[2019-04-12 08:54] VITALS: BP 120/74
--- NOTE | 2019-04-12 08:58 | NUR ---
Pain Clinic Assessment: 1. History of Osteoarthritis: GENERALIZED B/L KNEES, ELBOWS, SHOULDERS History of Rheumatoid Arthritis: Not Applicable 2. Height: 5 ft. 8 in. 172.7 cm. Weight: 167.0 lb. oz. 75.751 kg. Patient's BMI: 25.4 3. Vital Signs: BP: 120/74 Pulse: 117 Resp: 14 Temp: 02 Sat: 96 ECG Mon: 4. Pain Intensity: 9 5. Fall Risk: Dizziness: N Needs help standing or walking: N Fallen in the last 3 months: N Fall risk comments: USING A WALKER AT ALL TIMES HAS ASSISTANCE 6. Patient on Blood Thinner: None 7. History of Hypertension: Y 8. Opioid Therapy greater than 6 weeks: Y Opiate Contract Signed: 02/29/16 9. Risk Assessment Tool Provided: LOW RISK 09/27 10. Functional Assessment Tool: 11. Recreational Drug Use: Current within past 3 mos Drug Type: Tobacco Use: Current Every Day Smoker Tobacco Type: Cigarettes Amount or Packs/day: How Many Years: Alcohol Use: Yes Frequency: Special Occasions Quant:
--- NOTE | 2019-04-15 08:38 | HPC ---
[facility] [place] [address] PAIN MANAGEMENT CONSULTATION Name: IVONTYRELL Room #: REG SAMMY Emily#: [id number] Admission: 04/12/19 ������������������ Attend Phys: Tim Marr MD Discharge: ������������������ Date of : 60 Report #: [id number] THIS REPORT FOR: //name// CC: Nate Marr DATE OF SERVICE: 04/12/2019 Followup visit for chronic lumbar radiculopathy. This is a 25-30 minute followup visit for the patient who is here today for medication management. She has a complex pain history, well outlined throughout the chart. I am providing her medication to help. Today was also spent in counseling. I still have optimism that she will continue to improve over time and I wanted to make sure that she had that perspective as well. As long as she continues to remain active, I think that there will be some improvement. Healthy behaviors, exercise, avoidance of pain triggers were all discussed. She reports to me that she has had favorable responses in the past to marijuana. This quan discussion was based on the upcoming legality of marijuana as a prescription medication in [place]. [place] will be roughly the 35th state in [place] to allow for medicinal marijuana usage. We had a lengthy discussion about this although I cannot prescribe it for her now or in the future unless I am certified. We have given her the name of Dr. Bennie Kline, a physician who is planning on specializing in providing this controversial medication in the future. She hopes that with it she will be able to reduce her reliance on opioids and other medications. She is currently using oxycodone 10/325, 120 tablets per month roughly on a schedule. She has had some slight benefit from Lyrica at 50 mg b.i.d. She has had no significant side effects. PHYSICAL EXAMINATION: GENERAL: She is pleasant, mildly depressed. VITAL SIGNS: Blood pressure 124/70, heart rate is elevated at 117. I have asked her to watch her heart rate and follow up with her primary care physician. Her BMI is 25.4. Pain intensity 9/10. She moves from sitting to standing position and uses a walker or a cane to prevent falls. She is a bit unsteady on her feet. She has generalized weakness, bilateral in lower extremities. Deep tendon reflexes are diminished at knees and ankles bilaterally. There is some pain in her low back and hip and the L5-S1 distribution. It radiates down into the feet bilaterally. The left is far worse than the right. This is generally considered to be neuropathic in nature. IMPRESSION: [facility] [address] [place] [address] PAIN MANAGEMENT CONSULTATION Name: TYRELL DEL VALLE Room #: REG Akosua Diaz#: [id number] Admission: 04/12/19 ������������������ Attend Phys: Tim Marr MD Discharge: ������������������ Date of : 60 Report #: [id number] 1. Bilateral lower extremity weakness, post-laminectomy syndrome with radiculopathy, severe. 2. Failure of spinal cord stimulation with implant complications. 3. Chronic depression. 4. Medication management under terms of written opioid agreement. 5. History of breast cancer. PLAN: I have renewed her oxycodone for today and for 4 weeks. I have increased her Lyrica from 50 mg b.i.d. to 75 mg b.i.d., then t.i.d. hoping for some improvement in her neuropathic pain. 25-30 minutes spent with the patient. Followup visit scheduled in 2 months. ��������������������������������������������� <ELECTRONICALLY SIGNED> ���������������������������������������� By: Tim Marr MD ��������������������������������������������� 04/15/19 0838 [id number] Tim Marr MD /nt
== END ==
LOC: PAIN 06:50
DX: M54.16 Radiculopathy, lumbar region (principal); F32.9 Major depressive disorder, single episode, unspecified; Z79.891 Long term (current) use of opiate analgesic; Z85.3 Personal history of malignant neoplasm of breast

== ENCOUNTER → 2019-05-24 | Outpatient (CLI) | payer OTHER ==
[~2019-05-24] VITALS: Ht 172.7 cm; Wt 78.5 kg
[2019-05-24 08:38] VITALS: BP 115/78
--- NOTE | 2019-05-24 08:46 | NUR ---
Pain Clinic Assessment: 1. History of Osteoarthritis: GENERALIZED B/L KNEES, ELBOWS, SHOULDERS History of Rheumatoid Arthritis: Not Applicable 2. Height: 5 ft. 8 in. 172.7 cm. Weight: 173.0 lb. oz. 78.472 kg. Patient's BMI: 26.3 3. Vital Signs: BP: 115/78 Pulse: 89 Resp: 14 Temp: 02 Sat: 96 ECG Mon: 4. Pain Intensity: 7 5. Fall Risk: Dizziness: N Needs help standing or walking: Y Fallen in the last 3 months: Y Fall risk comments: FELL 2 WEEKS AGO OFF BED. DID NOT SEEK MEDICAL CARE USES CANE 6. Patient on Blood Thinner: None 7. History of Hypertension: Y 8. Opioid Therapy greater than 6 weeks: Y Opiate Contract Signed: 02/29/16 9. Risk Assessment Tool Provided: LOW RISK 09/27 10. Functional Assessment Tool: 11. Recreational Drug Use: Current within past 3 mos Drug Type: MJ Tobacco Use: Current Every Day Smoker Tobacco Type: Cigarettes Amount or Packs/day: 0.2 How Many Years: 40 Alcohol Use: Yes Frequency: Special Occasions Quant:
--- NOTE | 2019-05-26 13:17 | HPC ---
[facility] [place] [place] [address] [place] [address] PAIN MANAGEMENT CONSULTATION Name: TYRELL DEL VALLE Room #: REG [facility] Emily#: [id number] Admission: 05/24/19 Attend Phys: Opal Faulkner Discharge: Date of : 60 Report #: [id number] THIS REPORT FOR: //name// CC: Opal Marr MD DATE OF SERVICE: 05/24/2019 CHIEF COMPLAINT: Chronic lumbar radiculopathy. HISTORY OF PRESENT ILLNESS: This is a 59-year-old female who returned to the pain clinic today for refill of her medications that she uses to help treat her ongoing low back pain and bilateral leg pain. She reports a pain score 7/10 today without her medications. She tells me when she does take her medications, it is an average of 5/10, mostly a burning, especially in her legs, stabbing feeling, worse with walking and standing, but her medications and rest are very beneficial as well as she reports using occasional marijuana. She is seeking to get a medical marijuana card which she knows is not available until July. Currently, she is seeking out different doctors and facilities to obtain this card, though she understands that she will be paying jo for this and it will not be approved through insurance. The patient does understand that she will be decreasing her pain medications once she is able to have her medical marijuana card, though today she is needing refills of her oxycodone until that time and would like refills today. ALLERGIES: PENICILLIN, MORPHINE, TETRACYCLINE, ERYTHROMYCIN, METFORMIN AND GLIMEPIRIDE. MEDICATIONS: Lyrica 75 mg t.i.d., oxycodone 10/325 up to 4 times a day, omeprazole, Chantix, Arimidex, MiraLax, lisinopril, doxepin, Lipitor, Lantus, Celexa, NovoLog and hydrochlorothiazide. PQRS: 1. She has osteoarthritis in her knees, elbows, shoulders and back. Denies any rheumatoid arthritis. 2. Height is 5 feet 8 inches, weight is 173. BMI is 26. 3. Vital signs, 115/78, pulse is 89, respirations 14, oxygen sat is 96. 4. Pain score is 7/10. 5. Denies dizziness, does need help walking and standing. She uses a cane and she has fallen in the last 3 months. 6. The patient is not on any blood thinners, but does take medicine for hypertension. 7. Opioid therapy is greater than 6 weeks; therefore, an opioid signed contract is on the chart. Risk assessment is low. Functional assessment is 66/70. [place] [address] PAIN MANAGEMENT CONSULTATION Name: TYRELL DEL VALLE Room #: REG SAMMY Diaz#: [id number] Admission: 05/24/19 Attend Phys: Opal Faulkner Discharge: Date of : 60 Report #: [id number] 8. Does use occasional THC. Does smoke though trying to decrease by using Chantix and occasionally drinks alcohol. According to the prescription monitoring system, the patient is due in 2 weeks to fill her medications. She tells me she does safeguard her medications. PHYSICAL EXAMINATION: GENERAL: This is a pleasant, mildly depressed 59-year-old female who appears her stated age, placing her current pain score at 7/10 today. HEENT: Normocephalic, atraumatic. Extraocular eye muscles are intact. Mucous membranes are slightly dry. MUSCULOSKELETAL: She moves from sitting to standing position using her cane. She has an antalgic and steady gait. She has generalized weakness in her lower extremities. Pain is located across her lumbar spine, radiates following the L5-S1 dermatomal distribution down her legs to her feet bilaterally. IMPRESSION: 1. Bilateral lower extremity weakness, post-laminectomy syndrome with radiculopathy, severe. 2. 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 3. Chronic depression. 4. History of breast cancer. 5. Management of opioid medications under terms of written opioid agreement. 6. Post-laminectomy syndrome. We reviewed the fact that opiate medications are being used to provide analgesia adequate to support activities of daily living, not attempting to achieve a specific pain score on the 0-10 Visual Analog Scale. The current opiate medications are providing sufficient analgesia to allow the patient to participate in activities of daily living. The patient is not exhibiting any aberrant behavior suggestive of drug diversion. The patient is not having any adverse reactions to medications. The patient is not suffering from daytime somnolence or mental acuity changes. The patient is managing opiate-induced constipation with appropriate [id number]-[id number] agents and dietary considerations. The patient was counseled on concern for caution with operating a motor vehicle while using opiate medications. A physical exam was performed and the patient's functional status was evaluated. All patients with back pain were advised against the bed rest greater than 4 days and were advised to return to normal activities. Pain score assessment was noted and the treatment plan was reviewed with the patient. All current medications, both prescribed and OTC were reviewed and reconciled on the electronic medical record. Tobacco screening was accomplished and smoking cessation was advised when indicated. BMI was noted and diet/exercise modification was recommended for all patients following outside normal parameters. [address] [address] PAIN MANAGEMENT CONSULTATION Name: TYRELL DEL VALLE Room #: REG [facility]#: [id number] Admission: 05/24/19 Attend Phys: Opal Faulkner Discharge: Date of : 60 Report #: [id number] I reviewed with the patient today their responsibilities to safeguard prescription medications, reviewed their responsibility to utilize medications only as prescribed by the physician. They are to seek and receive pain medications only from 1 physician group ( [facility]). They are to use 1 pharmacy and keep the clinic informed if they change pharmacies. Their responsibilities include making followup visits in a timely fashion and to avoid abrupt discontinuation of medication usage. Their responsibilities further include bringing their medications (bottles from the pharmacy with residual pills) to the visit for possible confirmation of pill counts and the patient understands it is their responsibility to submit to random drug screens to ensure both that the medications prescribed are present, and that no other controlled substances are present. All prescriptions provided today were generated electronically. PLAN: 1. We discussed treatment options with the patient today. The patient is 2 weeks from filling her next prescriptions for her oxycodone that she does find beneficial. We will refill those with dates to be released on 06/09/2019 and 07/07/2019 for oxycodone 10/, #120. 2. The patient tells me that she is unsure if the Lyrica is beneficial or not. She did increase it to 3 times a day. We did discuss increasing it to 75; 2 in the morning, 1 midday, 1 in the afternoon. No scripts given today since she has a couple of weeks of medicine left. If she finds this beneficial, then we will call in this strength of medicine for her. 3. We did again talk about medical marijuana. The patient is hopeful to obtain a medical marijuana card in July. If she is successful in this, then we will decrease her opioids. The patient is aware of this stating that she feels like she has good pain control when she does take marijuana. The patient has been seeking out clinics to obtain her card currently. At her next visit in July, if she did find one, she will bring the information and we will start the weaning process of her oxycodone. 4. The patient does complain of significant constipation, reports she has been using Metamucil. I will give the patient a script for MiraLax to see if it is covered by her insurance. I know it is available [id number] as well. 5. The patient is seen in collaboration with Dr. Tim Marr who did see the patient as well. <ELECTRONICALLY SIGNED> By: Opal Faulkner 05/26/19 1317 0946 1245 Opal Faulkner /bowen
== END ==
LOC: PAIN 06:48
DX: M96.1 Postlaminectomy syndrome, not elsewhere classified (principal); M54.16 Radiculopathy, lumbar region; G89.29 Other chronic pain; F32.9 Major depressive disorder, single episode, unspecified; Z85.3 Personal history of malignant neoplasm of breast; Z88.0 Allergy status to penicillin; Z88.5 Allergy status to narcotic agent; Z88.1 Allergy status to other antibiotic agents; Z79.899 Other long term (current) drug therapy; Z79.891 Long term (current) use of opiate analgesic

== ENCOUNTER → 2019-07-26 | Outpatient (CLI) | payer OTHER ==
[~2019-07-26] VITALS: Ht 172.7 cm; Wt 80.6 kg
--- NOTE | ~2019-07-26 | HPC ---
[facility] [address] [place] [address] PAIN MANAGEMENT CONSULTATION Name: TYERLL DEL VALLE Room #: REG SAMMY Emily#: [id number] Admission: 07/26/19 Attend Phys: Tim Marr MD Discharge: Date of : 60 Report #: [id number] THIS REPORT FOR: //name// CC: Nate Marr DATE OF SERVICE: 07/26/2019 CHIEF COMPLAINT: Chronic pain, widespread post-laminectomy syndrome, chronic bilateral lower extremity neuropathic pain, failed spinal cord stimulator, osteoarthritis. The patient returns to pain clinic today in followup for medication management. She is debilitated, does not move much, stays in quite a bit and is depressed. She scores her daily pain is a 5-7/10. She has multiple pain generators. Her greatest pain now is in her back radiating into her legs. This has been present since prior to 06/2018. Because of radicular symptoms and radiating lower extremity pain, she underwent spinal cord stimulator placement. They were unable to adequately place a paddle and she suffered a dural tear. She has had ongoing pain since the procedure and is unwilling to undergo replacement of the spinal cord stimulator lead. The battery remains in place in her left flank. She complains that her legs continuously bother her and hips get numb after she has been up on her feet. She continues to smoke tobacco 1/2 pack per day. She was counseled. She rarely uses alcohol. Beginning in 48 hours, we will have legalized marijuana for medicinal use in the [facility], chronic pain and neuropathic pain as an indication. We have had quan discussions about marijuana. She has used it in the past on occasion and found that it provides medicinal benefits to her. She would like to use marijuana as an alternative to opioid medication. She currently is taking oxycodone 10 mg/325 four times daily. Over the course of the next 2 months, I am tapering it from 4 tablets a day to 3 tablets a day, then 2 and her goal will then be to taper her completely off of opioids in the future, assuming that the marijuana will provide her with substantial pain benefit. We have discussed potential risks and benefits of marijuana in additional to opioids. She understands. Currently, there are no open dispensaries that I am aware of. Our tapering of opioids over the next 2 months will put her in position to make that transition once the dispensaries are open. She understands that she must be given a card, which is currently being provided by physicians who have decided to specialize in providing marijuana guidance, much longer discussion ensued. PQRS REVIEW: She has significant generalized osteoarthritis. Her BMI is 27.0. She is at a fall risk. She uses a cane. She fell off the bed 2 weeks ago and did not seek medical care. Her blood pressure is 102/73, heart rate is 95, [address] [place] [address] PAIN MANAGEMENT CONSULTATION Name: TYRELL DEL VALLE Room #: REG [facility].#: [id number] Admission: 07/26/19 Attend Phys: Tim Marr MD Discharge: Date of : 60 Report #: [id number] sat 97. Pain intensity 5/10. She is not on blood thinning medications, but takes antihypertensives under direction of her primary care physician. She has an opioid agreement signed with us in 2015 and has completed an opioid risk score of 3. This puts her at a moderate risk for addiction. Her use of tobacco also increases risk. Her functional assessment score is horrible at 66/70 suggesting that pain interferes with almost all aspects of her life consistent with her psychological issues including depression. She admits to being depressed and having seasonal affective disorder. She continues to smoke, drinks alcohol occasionally in social settings. We discussed the interaction between opioids and alcohol as well as marijuana and alcohol. She needs to be cautious. I think she is at a risk for addiction. Because of that, we monitor her opioids carefully with a prescription drug monitoring program. I have seen no unexpected entries. She uses her medication as we prescribe it. We have had multiple educational sessions and reviews, discussed using opioids cautiously in the setting. That does not necessarily protect from addiction. She does appear to use her medication in a more controlled fashion, taking no more than 4 tablets a day at this time. Her last prescription was filled on 07/08. I will renew her prescriptions to be renewed on 08/08 and 09/08 at lower levels described above and we will consult again sometime in September to see how things are going. We discussed the future treatment options will exist now that we have marijuana as a medicinal option. Hopefully, this will provide better relief than her current polypharmacy of Percocet, antidepressants and Lyrica. By: [id number] Tim Marr MD /nt
[2019-07-26 10:49] VITALS: BP 102/73
--- NOTE | 2019-07-26 11:05 | NUR ---
Pain Clinic Assessment: 1. History of Osteoarthritis: GENERALIZED B/L KNEES, ELBOWS, SHOULDERS History of Rheumatoid Arthritis: Not Applicable 2. Height: 5 ft. 8 in. 172.7 cm. Weight: 177.6 lb. oz. 80.559 kg. Patient's BMI: 27.0 3. Vital Signs: BP: 102/73 Pulse: 95 Resp: 14 Temp: 02 Sat: 97 ECG Mon: 4. Pain Intensity: 5-TODAY 5. Fall Risk: Dizziness: N Needs help standing or walking: Y Fallen in the last 3 months: N Fall risk comments: FELL 2 WEEKS AGO OFF BED. DID NOT SEEK MEDICAL CARE USES CANE 6. Patient on Blood Thinner: None 7. History of Hypertension: Y 8. Opioid Therapy greater than 6 weeks: Y Opiate Contract Signed: 02/29/16 9. Risk Assessment Tool Provided: LOW RISK 09/27 10. Functional Assessment Tool: / 11. Recreational Drug Use: Current within past 3 mos Drug Type: Tobacco Use: Current Every Day Smoker Tobacco Type: Cigarettes Amount or Packs/day: 1/2 How Many Years: Alcohol Use: Yes Frequency: Special Occasions Quant:
== END ==
LOC: PAIN 06:29
DX: M96.1 Postlaminectomy syndrome, not elsewhere classified (principal); M79.604 Pain in right leg; M79.605 Pain in left leg; M19.90 Unspecified osteoarthritis, unspecified site

== ENCOUNTER → 2020-04-14 | Outpatient (CLI) | payer OTHER | LOC: LAB 09:20 | PROVIDERS: ATTEND Nurse Practitioner | DX: R06.02 Shortness of breath (principal); R05 Cough; Z20.828 Contact with and (suspected) exposure to other viral communicable diseases ==

== ENCOUNTER → 2020-06-19 | Outpatient (CLI) | payer OTHER | LOC: LAB 11:26 | PROVIDERS: ATTEND Nurse Practitioner | DX: Z20.828 Contact with and (suspected) exposure to other viral communicable diseases (principal) ==

== ENCOUNTER → 2020-07-31 | Outpatient (CLI) | payer OTHER ==
[~2020-07-31] VITALS: Ht 172.7 cm; Wt 82.1 kg
[~2020-07-31] MED LIST changes: +LEVEMIR100 UNIT/2 SUBQ; +LYRICA150 MG PO; +VENLAFAXINE H37.5 M1 PO
[2020-07-31 09:23] VITALS: BP 123/72
--- NOTE | 2020-07-31 09:45 | NUR ---
Pain Clinic Assessment: 1. History of Osteoarthritis: GENERALIZED B/L KNEES, ELBOWS, SHOULDERS History of Rheumatoid Arthritis: Not Applicable 2. Height: 5 ft. 8 in. 172.7 cm. Weight: 181.0 lb. oz. 82.101 kg. Patient's BMI: 27.5 3. Vital Signs: BP: 123/72 Pulse: 106 Resp: 16 Temp: 02 Sat: 97 ECG Mon: 4. Pain Intensity: 7 5. Fall Risk: Dizziness: N Needs help standing or walking: N Fallen in the last 3 months: N Fall risk comments: FELL 2 WEEKS AGO OFF BED. DID NOT SEEK MEDICAL CARE USES CANE 6. Patient on Blood Thinner: None 7. History of Hypertension: Y 8. Opioid Therapy greater than 6 weeks: Y Opiate Contract Signed: 02/29/16 9. Risk Assessment Tool Provided: LOW RISK 3 10. Functional Assessment Tool: 67/70 11. Recreational Drug Use: Current within past 3 mos Drug Type: MARIJUANA Tobacco Use: Current Some Day Smoker Tobacco Type: Cigarettes Amount or Packs/day: 0-4 PER DAY How Many Years: Alcohol Use: Yes Frequency: Special Occasions Quant: 1
== END | disposition home or self-care (01) ==
LOC: PAIN
PROVIDERS: ATTEND Anesthesiology Pain Medicine
DX: M54.16 Radiculopathy, lumbar region (principal); G89.29 Other chronic pain; M96.1 Postlaminectomy syndrome, not elsewhere classified; I10 Essential (primary) hypertension; M19.90 Unspecified osteoarthritis, unspecified site; F32.89 Other specified depressive episodes; Z98.890 Other specified postprocedural states; Z79.899 Other long term (current) drug therapy; Z88.0 Allergy status to penicillin; Z88.6 Allergy status to analgesic agent; Z88.8 Allergy status to other drugs, medicaments and biological substances

== ENCOUNTER → 2020-10-12 | Outpatient (CLI) | payer OTHER ==
[~2020-10-12] VITALS: Ht 172.7 cm; Wt 86.2 kg
[2020-10-12 12:31] VITALS: BP 160/69
--- NOTE | 2020-10-12 12:36 | NUR ---
Pain Clinic Assessment: 1. History of Osteoarthritis: KNEES, ELBOWS, SHOULDERS History of Rheumatoid Arthritis: Not Applicable 2. Height: 5 ft. 8 in. 172.7 cm. Weight: 190.0 lb. oz. 86.184 kg. Patient's BMI: 28.9 3. Vital Signs: BP: 160/69 Pulse: 96 Resp: 16 Temp: 02 Sat: 97 ECG Mon: 4. Pain Intensity: 9 5. Fall Risk: Dizziness: N Needs help standing or walking: N Fallen in the last 3 months: Y Fall risk comments: FELL 2 WEEKS AGO OFF BED. DID NOT SEEK MEDICAL CARE USES CANE 6. Patient on Blood Thinner: None 7. History of Hypertension: Y 8. Opioid Therapy greater than 6 weeks: Y Opiate Contract Signed: 02/29/16 9. Risk Assessment Tool Provided: LOW RISK 3 10. Functional Assessment Tool: 67/70 11. Recreational Drug Use: Current within past 3 mos Drug Type: MARIJUANA Tobacco Use: Current Some Day Smoker Tobacco Type: Cigarettes Amount or Packs/day: 1 PACK How Many Years: 40 Alcohol Use: Yes Frequency: Special Occasions Quant: 2
== END ==
LOC: PAIN 06:44
PROVIDERS: ATTEND Anesthesiology Pain Medicine
DX: G89.4 Chronic pain syndrome (principal); M96.1 Postlaminectomy syndrome, not elsewhere classified; F32.9 Major depressive disorder, single episode, unspecified; F17.200 Nicotine dependence, unspecified, uncomplicated; F12.90 Cannabis use, unspecified, uncomplicated; Z56.0 Unemployment, unspecified; Z72.89 Other problems related to lifestyle

== ENCOUNTER → 2020-11-15 | Outpatient (CLI) | payer OTHER | LOC: CAT 11-13 11:19 | PROVIDERS: ATTEND Anesthesiology Pain Medicine | DX: M16.0 Bilateral primary osteoarthritis of hip (principal); M25.852 Other specified joint disorders, left hip; M25.851 Other specified joint disorders, right hip; M25.752 Osteophyte, left hip; M25.751 Osteophyte, right hip; Z98.1 Arthrodesis status; Z98.890 Other specified postprocedural states ==

== ENCOUNTER → 2020-11-30 | Outpatient (CLI) | payer OTHER ==
[~2020-11-30] VITALS: Ht 172.7 cm; Wt 84.4 kg
[2020-11-30 12:51] VITALS: BP 119/90
--- NOTE | 2020-11-30 13:01 | NUR ---
Pain Clinic Assessment: 1. History of Osteoarthritis: KNEES, ELBOWS, SHOULDERS History of Rheumatoid Arthritis: Not Applicable 2. Height: 5 ft. 8 in. 172.7 cm. Weight: 186.0 lb. oz. 84.369 kg. Patient's BMI: 28.3 3. Vital Signs: BP: 119/90 Pulse: 90 Resp: 14 Temp: 02 Sat: 98 ECG Mon: 4. Pain Intensity: 9 5. Fall Risk: Dizziness: N Needs help standing or walking: Y Fallen in the last 3 months: N Fall risk comments: FELL 2 WEEKS AGO OFF BED. DID NOT SEEK MEDICAL CARE USES CANE 6. Patient on Blood Thinner: None 7. History of Hypertension: Y 8. Opioid Therapy greater than 6 weeks: Y Opiate Contract Signed: 02/29/16 9. Risk Assessment Tool Provided: LOW RISK 3 10. Functional Assessment Tool: 67/ 11. Recreational Drug Use: Current within past 3 mos Drug Type: Tobacco Use: Current Some Day Smoker Tobacco Type: Amount or Packs/day: How Many Years: Alcohol Use: Yes Frequency: Quant:
== END ==
LOC: PAIN 08:18
PROVIDERS: ATTEND Anesthesiology Pain Medicine
DX: M54.16 Radiculopathy, lumbar region (principal); M96.1 Postlaminectomy syndrome, not elsewhere classified; F32.9 Major depressive disorder, single episode, unspecified; G89.29 Other chronic pain; F11.20 Opioid dependence, uncomplicated; Z79.899 Other long term (current) drug therapy; F17.200 Nicotine dependence, unspecified, uncomplicated; Z88.8 Allergy status to other drugs, medicaments and biological substances

== ENCOUNTER → 2020-12-07 | Outpatient (CLI) | payer OTHER ==
[~2020-12-07] VITALS: Ht 172.7 cm; Wt 86.0 kg
--- NOTE | 2020-12-07 13:12 | NUR ---
Pain Clinic Assessment: 1. History of Osteoarthritis: KNEES, ELBOWS, SHOULDERS History of Rheumatoid Arthritis: Not Applicable 2. Height: ft. in. cm. Weight: lb. oz. kg. Patient's BMI: 3. Vital Signs: BP: Pulse: Resp: Temp: 02 Sat: ECG Mon: 4. Pain Intensity: 9 5. Fall Risk: Dizziness: Needs help standing or walking: Fallen in the last 3 months: Fall risk comments: FELL 2 WEEKS AGO OFF BED. DID NOT SEEK MEDICAL CARE USES CANE 6. Patient on Blood Thinner: None 7. History of Hypertension: Y 8. Opioid Therapy greater than 6 weeks: Y Opiate Contract Signed: 02/29/16 9. Risk Assessment Tool Provided: LOW RISK 3 10. Functional Assessment Tool: 11. Recreational Drug Use: Current within past 3 mos Drug Type: marijuana Tobacco Use: Current Some Day Smoker Tobacco Type: Cigarettes Amount or Packs/day: 1/2 pack How Many Years: Alcohol Use: Yes Frequency: Special Occasions Quant: 2
[2020-12-07 13:18] VITALS: BP 142/85
== END | disposition home or self-care (01) ==
LOC: PAIN 10:50
PROVIDERS: ATTEND Anesthesiology Pain Medicine
DX: M54.16 Radiculopathy, lumbar region (principal); G89.29 Other chronic pain; F17.210 Nicotine dependence, cigarettes, uncomplicated; Z98.890 Other specified postprocedural states; Z79.899 Other long term (current) drug therapy; Z85.3 Personal history of malignant neoplasm of breast; Z88.0 Allergy status to penicillin; Z88.8 Allergy status to other drugs, medicaments and biological substances

== ENCOUNTER → 2021-01-22 | Outpatient (CLI) | payer OTHER ==
[~2021-01-22] VITALS: Ht 172.7 cm; Wt 85.2 kg
[~2021-01-22] MED LIST changes: +CHANTIX1 MG PO; +[UNRECOGNIZED DRUG - OTHER] PO
[2021-01-22 10:12] VITALS: BP 100/68
--- NOTE | 2021-01-22 10:22 | NUR ---
Pain Clinic Assessment: 1. History of Osteoarthritis: KNEES, ELBOWS, SHOULDERS History of Rheumatoid Arthritis: Not Applicable 2. Height: 5 ft. 8 in. 172.7 cm. Weight: 187.8 lb. oz. 85.186 kg. Patient's BMI: 28.6 3. Vital Signs: BP: 100/68 Pulse: 85 Resp: 16 Temp: 02 Sat: 97 ECG Mon: 4. Pain Intensity: 9 5. Fall Risk: Dizziness: N Needs help standing or walking: Y Fallen in the last 3 months: N Fall risk comments: FELL 2 WEEKS AGO OFF BED. DID NOT SEEK MEDICAL CARE USES CANE 6. Patient on Blood Thinner: None 7. History of Hypertension: Y 8. Opioid Therapy greater than 6 weeks: Y Opiate Contract Signed: 02/29/16 9. Risk Assessment Tool Provided: LOW RISK 3 10. Functional Assessment Tool: 67/ 11. Recreational Drug Use: Current within past 3 mos Drug Type: Tobacco Use: Current Some Day Smoker Tobacco Type: Amount or Packs/day: 1/2 PK/DAY How Many Years: Alcohol Use: Yes Frequency: Special Occasions Quant:
== END | disposition home or self-care (01) ==
LOC: PAIN 07:06
PROVIDERS: ATTEND Anesthesiology Pain Medicine
DX: M16.11 Unilateral primary osteoarthritis, right hip (principal); M25.551 Pain in right hip; G89.29 Other chronic pain; M19.90 Unspecified osteoarthritis, unspecified site; F17.210 Nicotine dependence, cigarettes, uncomplicated; Z98.890 Other specified postprocedural states; Z79.899 Other long term (current) drug therapy; Z85.3 Personal history of malignant neoplasm of breast; Z88.0 Allergy status to penicillin; Z88.8 Allergy status to other drugs, medicaments and biological substances

== ENCOUNTER → 2021-03-01 | Outpatient (CLI) | payer OTHER ==
[~2021-03-01] VITALS: Ht 172.7 cm; Wt 86.0 kg
[~2021-03-01] MED LIST changes: +ADVIL200 M3 PO; +LAMICTAL100 MG PO
[2021-03-01 09:34] VITALS: BP 124/80
--- NOTE | 2021-03-01 09:47 | NUR ---
Pain Clinic Assessment: 1. History of Osteoarthritis: KNEES, ELBOWS, SHOULDERS History of Rheumatoid Arthritis: Not Applicable 2. Height: 5 ft. 8 in. 172.7 cm. Weight: 189.6 lb. oz. 86.002 kg. Patient's BMI: 28.8 3. Vital Signs: BP: 124/80 Pulse: 96 Resp: 16 Temp: 02 Sat: 96 ECG Mon: 4. Pain Intensity: 8 5. Fall Risk: Dizziness: Y Needs help standing or walking: Y Fallen in the last 3 months: N Fall risk comments: FELL 2 WEEKS AGO OFF BED. DID NOT SEEK MEDICAL CARE USES CANE 6. Patient on Blood Thinner: None 7. History of Hypertension: Y 8. Opioid Therapy greater than 6 weeks: Y Opiate Contract Signed: 02/29/16 9. Risk Assessment Tool Provided: LOW RISK 3 10. Functional Assessment Tool: 67/ 11. Recreational Drug Use: Current within past 3 mos Drug Type: MARIJUANA Tobacco Use: Current Some Day Smoker Tobacco Type: Cigarettes Amount or Packs/day: 5-6 PER DAY How Many Years: 40 Alcohol Use: Yes Frequency: Monthly Quant: 2
== END ==
LOC: PAIN 07:09
PROVIDERS: ATTEND Anesthesiology Pain Medicine
DX: G89.4 Chronic pain syndrome (principal); M54.16 Radiculopathy, lumbar region; M54.5 Low back pain; F32.9 Major depressive disorder, single episode, unspecified; Z79.4 Long term (current) use of insulin; Z79.899 Other long term (current) drug therapy; Z79.891 Long term (current) use of opiate analgesic

== ENCOUNTER → 2021-09-20 | Outpatient (CLI) | payer OTHER ==
[~2021-09-20] VITALS: Ht 172.7 cm; Wt 86.1 kg
[~2021-09-20] MED LIST changes: +HUMALOG100 UNIT/1 SUBQ; +LAMICTAL (ORAN1 EACH PO
[2021-09-20 13:02] VITALS: BP 149/85
--- NOTE | 2021-09-20 13:03 | NUR ---
Pain Clinic Assessment: 1. History of Osteoarthritis: KNEES, ELBOWS, SHOULDERS History of Rheumatoid Arthritis: Not Applicable 2. Height: 5 ft. 8 in. 172.7 cm. Weight: 189.8 lb. oz. 86.093 kg. Patient's BMI: 28.9 3. Vital Signs: BP: 149/85 Pulse: 87 Resp: 18 Temp: 02 Sat: 97 ECG Mon: 4. Pain Intensity: 8 5. Fall Risk: Dizziness: Y Needs help standing or walking: N Fallen in the last 3 months: Y Fall risk comments: FELL 2 WEEKS AGO OFF BED. DID NOT SEEK MEDICAL CARE USES CANE 6. Patient on Blood Thinner: None 7. History of Hypertension: Y 8. Opioid Therapy greater than 6 weeks: N Opiate Contract Signed: 02/29/16 9. Risk Assessment Tool Provided: LOW RISK 3 10. Functional Assessment Tool: 67/70 11. Recreational Drug Use: Current within past 3 mos Drug Type: POT Tobacco Use: Current Some Day Smoker Tobacco Type: Cigarettes Amount or Packs/day: 1/2 PK/D How Many Years: Alcohol Use: Yes Frequency: Special Occasions Quant:
== END ==
LOC: PAIN 08-23 09:21
PROVIDERS: ATTEND Anesthesiology Pain Medicine
DX: M47.26 Other spondylosis with radiculopathy, lumbar region (principal); G89.29 Other chronic pain; Z79.899 Other long term (current) drug therapy; Z88.8 Allergy status to other drugs, medicaments and biological substances; Z88.2 Allergy status to sulfonamides